=== PATIENT | male | born 1980 | race Caucasian/White ===

== ENCOUNTER → 2017-01-04 | Outpatient (CLI) | payer MEDICARE, OTHER ==
[2017-01-04 10:20] LABS: Basophils % (A) 0 %; CH 27.7; CHCM 32.4; Eosinophils # (A) 0.2 k/uL (0-0.7); Eosinophils % (A) 2 %; HCT 47.6 % (39.0-53.0); HDW 3.05; HGB 15.6 gm/dL (13.0-17.5); Luc # (Auto) 0.11; Luc % (Auto) 1; Lymphocytes # (A) 3.6 k/uL (1.0-4.8); Lymphocytes % (A) 45 %; MCH 28.1 pg (25.0-35.0); MCHC 32.8 g/dL (31.0-37.0); MCV 85.8 fL (80.0-100.0); Mean Platelet Volume 7.5; Monocytes # (A) 0.2 k/uL (0-1.0); Monocytes % (A) 3 %; Neutrophils # (A) 3.8 k/uL (1.3-7.7); Neutrophils % (A) 48 %; RBC 5.56 m/uL (4.30-5.90); RDW 13.9 % (11.5-15.5); WBC 7.9 k/uL (3.8-10.6); WBC (Perox) 7.86
== END | disposition home or self-care (01) ==
LOC: LABWHC1 08:28
PROVIDERS: ATTEND Psychiatry & Neurology Neurology
DX: G40.209 Localization-related (focal) (partial) symptomatic epilepsy and epileptic syndromes with complex partial seizures, not intractable, without status epilepticus (principal)
CPT/HCPCS: 36415; 80164; 80201; 84450; 84460; 85025

== ENCOUNTER → 2017-11-09 | Outpatient (CLI) | payer MEDICARE, OTHER ==
[2017-11-09 10:12] LABS: Basophils % (A) 0 %; Eosinophils # (A) 0.2 k/uL (0-0.7); Eosinophils % (A) 2 %; HCT 49.1 % (39.0-53.0); HGB 15.5 gm/dL (13.0-17.5); Lymphocytes # (A) 3.4 k/uL (1.0-4.8); Lymphocytes % (A) 33 %; MCH 26.7 pg (25.0-35.0); MCHC 31.7 g/dL (31.0-37.0); MCV 84.2 fL (80.0-100.0); Monocytes # (A) 0.3 k/uL (0-1.0); Monocytes % (A) 3 %; Neutrophils # (A) 6.3 k/uL (1.3-7.7); Neutrophils % (A) 61 %; Platelet Count 290 k/uL (150-450); RBC 5.83 m/uL (4.30-5.90); RDW 13.5 % (11.5-15.5); WBC 10.3 k/uL (3.8-10.6)
[2017-11-09 11:08] LABS: Valproic Acid (Depakene) 45.7 ug/mL
== END | disposition home or self-care (01) ==
LOC: LABWHC1 09:20
PROVIDERS: ATTEND Psychiatry & Neurology Neurology
DX: G40.209 Localization-related (focal) (partial) symptomatic epilepsy and epileptic syndromes with complex partial seizures, not intractable, without status epilepticus (principal)
CPT/HCPCS: 36415; 80164; 80201; 84450; 84460; 85025

== ENCOUNTER → 2018-04-21 | Outpatient (CLI) | payer MEDICARE, OTHER ==
[2018-04-21 09:57] LABS: Basophils % (A) 0 %; Eosinophils # (A) 0.3 k/uL (0-0.7); Eosinophils % (A) 4 %; HCT 46.6 % (39.0-53.0); HGB 15.1 gm/dL (13.0-17.5); Lymphocytes # (A) 3.5 k/uL (1.0-4.8); Lymphocytes % (A) 42 %; MCH 28.2 pg (25.0-35.0); MCHC 32.5 g/dL (31.0-37.0); MCV 86.8 fL (80.0-100.0); Monocytes # (A) 0.2 k/uL (0-1.0); Monocytes % (A) 3 %; Neutrophils # (A) 4.1 k/uL (1.3-7.7); Neutrophils % (A) 50 %; Platelet Count 208 k/uL (150-450); RBC 5.37 m/uL (4.30-5.90); RDW 13.6 % (11.5-15.5); WBC 8.3 k/uL (3.8-10.6)
[2018-04-21 16:11] LABS: Valproic Acid (Depakene) 51.1 ug/mL (50.0-100.0)
== END ==
LOC: LABWHC1 09:12
PROVIDERS: ATTEND Psychiatry & Neurology Neurology
DX: G40.209 Localization-related (focal) (partial) symptomatic epilepsy and epileptic syndromes with complex partial seizures, not intractable, without status epilepticus (principal)
CPT/HCPCS: 36415; 80164; 80201; 84450; 84460; 85025

== ENCOUNTER → 2019-01-24 | Outpatient (CLI) | payer MEDICARE, OTHER ==
[2019-01-24 10:15] LABS: Basophils % (A) 0 %; Eosinophils # (A) 0.2 k/uL (0-0.7); Eosinophils % (A) 3 %; HCT 49.6 % (39.0-53.0); Lymphocytes # (A) 2.5 k/uL (1.0-4.8); Lymphocytes % (A) 36 %; MCH 28.9 pg (25.0-35.0); MCHC 32.3 g/dL (31.0-37.0); MCV 89.6 fL (80.0-100.0); Mean Platelet Volume 7.7; Monocytes # (A) 0.2 k/uL (0-1.0); Monocytes % (A) 3 %; Neutrophils % (A) 56 %; Platelet Count 230 k/uL (150-450); RBC 5.54 m/uL (4.30-5.90); RDW 13.4 % (11.5-15.5); WBC 7.1 k/uL (3.8-10.6)
[2019-01-24 12:36] LABS: Erythrocyte Sedimentation Rate 2 mm/hr (0-15)
[2019-01-24 17:41] LABS: ALT 33 U/L (10-49); AST 21 U/L (14-35); Albumin/Globulin Ratio 2.24 (1.60-3.17); Alkaline Phosphatase 68 U/L (41-126); BUN/Creat Ratio 8.89 Ratio (12.00-20.00); C Reactive Protein <0.4 mg/dL (0.0-0.8); Calcium 9.9 mg/dL (8.7-10.3); Carbon Dioxide 22.9 mmol/L (21.6-31.8); Chloride 110 mmol/L (96-109); Globulin 2.1 g/dL (1.6-3.3); Glucose 171 mg/dL (70-110); Potassium 4.8 mmol/L (3.5-5.5); Sodium 139 mmol/L (135-145); Total Bilirubin 0.4 mg/dL (0.3-1.2); Total Protein 6.8 g/dL (6.2-8.2)
[2019-01-24 18:24] LABS: Gliadin AB IgA, Deaminated NEGATIVE (NEGATIVE); Gliadin AB IgA, Unit 0.3 U/mL; Gliadin AB IgG, Deaminated NEGATIVE (NEGATIVE)
== END | disposition home or self-care (01) ==
LOC: LABWHC1 09:02
PROVIDERS: ATTEND Physician Assistant
DX: G40.209 Localization-related (focal) (partial) symptomatic epilepsy and epileptic syndromes with complex partial seizures, not intractable, without status epilepticus (principal); R19.7 Diarrhea, unspecified
CPT/HCPCS: 36415; 80053; 80164; 80201; 83516; 85025; 85652; 86140

== ENCOUNTER → 2020-02-25 | Outpatient (CLI) | payer MEDICARE, OTHER ==
[2020-02-25 10:46] LABS: Basophils % (A) 0 %; Eosinophils # (A) 0.3 k/uL (0-0.7); Eosinophils % (A) 3 %; HCT 51.2 % (39.0-53.0); Lymphocytes # (A) 3.5 k/uL (1.0-4.8); Lymphocytes % (A) 35 %; MCH 29.2 pg (25.0-35.0); MCHC 33.3 g/dL (31.0-37.0); MCV 87.7 fL (80.0-100.0); Mean Platelet Volume 7.6; Monocytes # (A) 0.3 k/uL (0-1.0); Monocytes % (A) 3 %; Neutrophils # (A) 5.8 k/uL (1.3-7.7); Neutrophils % (A) 58 %; Platelet Count 258 k/uL (150-450); RBC 5.85 m/uL (4.30-5.90); RDW 12.8 % (11.5-15.5)
== END | disposition home or self-care (01) ==
LOC: LABWHC1 09:16
PROVIDERS: ATTEND Psychiatry & Neurology Neurology
DX: G40.209 Localization-related (focal) (partial) symptomatic epilepsy and epileptic syndromes with complex partial seizures, not intractable, without status epilepticus (principal)
CPT/HCPCS: 36415; 80164; 80201; 84450; 84460; 85025

== ENCOUNTER 2020-04-15 11:06 | Inpatient (IN) | payer MEDICARE, OTHER ==
[2020-04-15] MEDS ORDERED: KETOROLAC 15 MG/ML 1 ML VIAL IVP STA (11:11)
[2020-04-15] MEDS ORDERED: ONDANSETRON 4 MG/2 ML VIAL IVP STA (11:11)
[2020-04-15] MEDS ORDERED: SODIUM CHLORIDE 0.9% 2,000 ML IV STA (11:11)
--- NOTE | 2020-04-15 11:17 | ED ---
General Adult HPI - General Source: patient, EMS, RN notes reviewed Mode of arrival: EMS Limitations: no limitations <Herminio Fernandez - Last Filed: 04/15/20 12:50> <Tyshawn Saeed - Last Filed: 04/15/20 13:03> - General Stated complaint: r sided flank pain Time Seen by Provider: 04/15/20 11:10 - History of Present Illness Initial comments: This a 39-year-old male presents emergency department via EMS chief complaint of right-sided flank pain, abdominal pain, nausea vomiting. Patient's symptoms started last day or so worsen. Patient states his current pain as a 6 out of 10. Patient states that he still feels nauseated. No diarrhea no constipation no history kidney stones. Patient had a fever at home. Patient denies any pr ior abdominal surgeries. Patient denies headache sick contacts. No dysuria no hematuria no chest pain or shortness breath. (Herminio Fernandez) - Related Data Home Medications Medication Instructions Recorded Confirmed Dicyclomine [Bentyl] 10 mg PO TID 04/15/20 04/15/20 Divalproex ER [Depakote ER] 250 mg PO DAILY 04/15/20 04/15/20 Divalproex ER [Depakote ER] 500 mg PO DAILY 04/15/20 04/15/20 Doxycycline 20mg 20 mg PO BID 04/15/20 04/15/20 Dulaglutide [Trulicity] 1.5 mg SQ TH 04/15/20 04/15/20 Fluticasone Nasal [place] [Flonase 1 spr EA NOSTRIL DAILY 04/15/20 04/15/20 Nasal [place]] Loratadine 10 mg PO DAILY 04/15/20 04/15/20 Topiramate [Trokendi Xr] 50 mg PO DAILY 04/15/20 04/15/20 Topiramate [Trokendi Xr] 200 mg PO DAILY 04/15/20 04/15/20 metFORMIN HCL 1,000 mg PO BID 04/15/20 04/15/20 sitaGLIPtin [Januvia] 100 mg PO DAILY 04/15/20 04/15/20 Allergies Allergy/AdvReac Type Severity Reaction Status Date / Time No Known Allergies Allergy Verified 04/15/20 12:16 Review of Systems ROS Other: All systems not noted in ROS Statement are negative. <Herminio Fernandez - Last Filed: 04/15/20 12:50> ROS Other: All systems not noted in ROS Statement are negative. <Tyshawn Saeed - Last Filed: 04/15/20 13:03> ROS Statement: Those systems with pertinent positive or pertinent negative responses have been documented in the HPI. General Exam General appearance: alert, in no apparent distress Head exam: Present: atraumatic, normocephalic, normal inspection Eye exam: Present: normal appearance, PERRL, EOMI. Absent: scleral icterus, conjunctival injection, periorbital swelling ENT exam: Present: mucous membranes dry Neck exam: Present: normal inspection, full ROM. Absent: tenderness, meningismus, lymphadenopathy Respiratory exam: Present: normal lung sounds bilaterally. Absent: respiratory distress, wheezes, rales, rhonchi, stridor Cardiovascular Exam: Present: regular rate, normal rhythm, normal heart sounds. Absent: systolic murmur, diastolic murmur, rubs, gallop, clicks GI/Abdominal exam: Present: soft, tenderness (Mild right, right flank), normal bowel sounds. Absent: distended, guarding, rebound, rigid Back exam: Present: CVA tenderness (R). Absent: CVA tenderness (L) Neurological exam: Present: alert, oriented X3 Skin exam: Present: warm, dry, intact, normal color. Absent: rash <Herminio Fernandez - Last Filed: 04/15/20 12:50> Course <Tyshawn Saeed - Last Filed: 04/15/20 13:03> Vital Signs 04/15/20 11:06 Temperature 100.0 F H Pulse Rate 72 Respiratory 18 Rate Blood Pressure 146/99 O2 Sat by Pulse 100 Oximetry - Reevaluation(s) Reevaluation #1: 04/15/20 13:03 Case discussed with urology, Dr. Kirkland, and the admitting physician Dr. Prince. (Tyshawn Saeed) Medical Decision Making - Lab Data Result diagrams: 04/15/20 11:22 04/15/20 11:22 <Herminio Fernandez - Last Filed: 04/15/20 12:50> - Lab Data Result diagrams: 04/15/20 11:22 04/15/20 11:22 <Tyshawn Saeed - Last Filed: 04/15/20 13:03> - Medical Decision Making 31-year-old male presented to ER for flank pain. Patient's noted have 6-7 mm stone patient has noted a low-grade temp, but is ecchymosis and lactic acidosis. Case discussed with urology recommended patient be admitted for continued on IV antibiotics. Patient was started on Rocephin. (Herminio Fernandez) - Lab Data Lab Results 04/15/20 04/15/20 04/15/20 Range/Units 11:22 11:22 11:22 WBC 14.6 H (3.8-10.6) k/uL RBC 5.21 (4.30-5.90) m/uL Hgb 15.1 (13.0-17.5) gm/dL Hct 44.7 (39.0-53.0) % MCV 85.8 (80.0-100.0) fL MCH 29.0 (25.0-35.0) pg MCHC 33.8 (31.0-37.0) g/dL RDW 12.8 (11.5-15.5) % Plt Count 226 (150-450) k/uL MPV 7.8 Neutrophils % 88 % Lymphocytes % 9 % Monocytes % 3 % Eosinophils % 0 % Basophils % 0 % Neutrophils # 12.8 H (1.3-7.7) k/uL Lymphocytes # 1.3 (1.0-4.8) k/uL Monocytes # 0.4 (0-1.0) k/uL Eosinophils # 0.0 (0-0.7) k/uL Basophils # 0.0 (0-0.2) k/uL Sodium 138 (137-145) mmol/L Potassium 5.2 H (3.5-5.1) mmol/L Chloride 104 (98-107) mmol/L Carbon Dioxide 22 (22-30) mmol/L Anion Gap 12 mmol/L BUN 16 (9-20) mg/dL Creatinine 1.18 (0.66-1.25) mg/dL Est GFR (CKD-EPI)AfAm >90 (>60 ml/min/1.73 sqM) Est GFR (CKD-EPI)NonAf 78 (>60 ml/min/1.73 sqM) Glucose 297 H (74-99) mg/dL Plasma Lactic Acid Jorden (0.7-2.0) mmol/L Calcium 9.9 (8.4-10.2) mg/dL Total Bilirubin 0.6 (0.2-1.3) mg/dL AST 25 (17-59) U/L ALT 43 (4-49) U/L Alkaline Phosphatase 74 (38-126) U/L Total Protein 7.2 (6.3-8.2) g/dL Albumin 4.5 (3.5-5.0) g/dL Amylase 33 (30-110) U/L Lipase 149 (23-300) U/L Urine Color Light Yellow Urine Appearance Clear (Clear) Urine pH 6.5 (5.0-8.0) Ur Specific [place] 1.024 (1.001-1.035) Urine Protein Negative (Negative) Urine Glucose (UA) 4+ H (Negative) Urine Ketones 2+ H (Negative) Urine Blood Moderate H (Negative) Urine Nitrite Negative (Negative) Urine Bilirubin Negative (Negative) Urine Urobilinogen <2.0 (<2.0) mg/dL Ur Leukocyte Esterase Negative (Negative) Urine RBC 49 H (0-5) /hpf Urine WBC 1 (0-5) /hpf Urine Mucus Rare H (None) /hpf 04/15/20 Range/Units 11:22 WBC (3.8-10.6) k/uL RBC (4.30-5.90) m/uL Hgb (13.0-17.5) gm/dL Hct (39.0-53.0) % MCV (80.0-100.0) fL MCH (25.0-35.0) pg MCHC (31.0-37.0) g/dL RDW (11.5-15.5) % Plt Count (150-450) k/uL MPV Neutrophils % % Lymphocytes % % Monocytes % % Eosinophils % % Basophils % % Neutrophils # (1.3-7.7) k/uL Lymphocytes # (1.0-4.8) k/uL Monocytes # (0-1.0) k/uL Eosinophils # (0-0.7) k/uL Basophils # (0-0.2) k/uL Sodium (137-145) mmol/L Potassium (3.5-5.1) mmol/L Chloride (98-107) mmol/L Carbon Dioxide (22-30) mmol/L Anion Gap mmol/L BUN (9-20) mg/dL Creatinine (0.66-1.25) mg/dL Est GFR (CKD-EPI)AfAm (>60 ml/min/1.73 sqM) Est GFR (CKD-EPI)NonAf (>60 ml/min/1.73 sqM) Glucose (74-99) mg/dL Plasma Lactic Acid Jorden 3.6 H* (0.7-2.0) mmol/L Calcium (8.4-10.2) mg/dL Total Bilirubin (0.2-1.3) mg/dL AST (17-59) U/L ALT (4-49) U/L Alkaline Phosphatase (38-126) U/L Total Protein (6.3-8.2) g/dL Albumin (3.5-5.0) g/dL Amylase (30-110) U/L Lipase (23-300) U/L Urine Color Urine Appearance (Clear) Urine pH (5.0-8.0) Ur Specific [place] (1.001-1.035) Urine Protein (Negative) Urine Glucose (UA) (Negative) Urine Ketones (Negative) Urine Blood (Negative) Urine Nitrite (Negative) Urine Bilirubin (Negative) Urine Urobilinogen (<2.0) mg/dL Ur Leukocyte Esterase (Negative) Urine RBC (0-5) /hpf Urine WBC (0-5) /hpf Urine Mucus (None) /hpf Disposition <Herminio Fernandez M - Last Filed: 04/15/20 12:50> <Tyshawn Saeed - Last Filed: 04/15/20 13:03> Clinical Impression: Ureteral calculus, Febrile, Lactic acidosis Disposition: ADMITTED IP TO THIS HOSP Referrals: Min Rojas MD [Primary Care Provider] - 1-2 days
[2020-04-15 11:42] LABS: Basophils % (A) 0 %; Eosinophils % (A) 0 %; HCT 44.7 % (39.0-53.0); HGB 15.1 gm/dL (13.0-17.5); Lymphocytes # (A) 1.3 k/uL (1.0-4.8); Lymphocytes % (A) 9 %; MCHC 33.8 g/dL (31.0-37.0); MCV 85.8 fL (80.0-100.0); Mean Platelet Volume 7.8; Monocytes # (A) 0.4 k/uL (0-1.0); Monocytes % (A) 3 %; Neutrophils # (A) 12.8 k/uL (1.3-7.7); Neutrophils % (A) 88 %; Platelet Count 226 k/uL (150-450); RBC 5.21 m/uL (4.30-5.90); RDW 12.8 % (11.5-15.5); WBC 14.6 k/uL (3.8-10.6)
[2020-04-15 11:53] LABS: ALT 43 U/L (4-49); AST 25 U/L (17-59); African American GFR (CKD) >90 (>60 ml/min/1.73 sqM); Albumin 4.5 g/dL (3.5-5.0); Alkaline Phosphatase 74 U/L (38-126); Amylase 33 U/L (30-110); Anion Gap 12 mmol/L; Blood Urea Nitrogen 16 mg/dL (9-20); Calcium 9.9 mg/dL (8.4-10.2); Carbon Dioxide 22 mmol/L (22-30); Chloride 104 mmol/L (98-107); Glucose 297 mg/dL (74-99); Lipase 149 U/L (23-300); Non-African American GFR(CKD) 78 (>60 ml/min/1.73 sqM); Potassium 5.2 mmol/L (3.5-5.1); Sodium 138 mmol/L (137-145); Total Bilirubin 0.6 mg/dL (0.2-1.3); Total Protein 7.2 g/dL (6.3-8.2)
[2020-04-15 11:58] LABS: Appearance,Urine Clear (Clear); Bilirubin,Urine Negative (Negative); Blood,Urine Moderate (Negative); Color,Urine Light Yellow; Glucose,Urine (UA) 4+ (Negative); Leukocyte Esterase,Urine Negative (Negative); Mucus,Urine Rare /hpf; Nitrite,Urine Negative (Negative); PH, Urine 6.5 (5.0-8.0); Protein,Urine Negative (Negative); RBC,Urine 49 /hpf (0-5); Specific Gravity,Urine 1.024 (1.001-1.035); Urobilinogen,Urine <2.0 mg/dL (<2.0); WBC,Urine 1 /hpf (0-5)
[2020-04-15 12:14] LABS: Ketones,Urine 2+ (Negative)
--- NOTE | 2020-04-15 12:30 | CT ---
EXAMINATION TYPE: CT abdomen pelvis w con DATE OF EXAM: 04/15/2020 COMPARISON: None. HISTORY: Right sided flank pain and fever. CT DLP: 1598.6 mGycm, Automated Exposure Control for Dose Reduction was Utilized. CONTRAST: CT scan of the abdomen and pelvis is performed without oral but with IV Contrast, patient injected wi th 10 mL of Isovue 300. FINDINGS: LUNG BASES: No significant abnormality is appreciated. LIVER/GB: Visualized liver is heterogeneously hypodense consistent with diffuse fatty infiltration. PANCREAS: No significant abnormality is seen. SPLEEN: No significant abnormality is seen. ADRENALS: No significant abnormality is seen. KIDNEYS: There is 6 mm calculus in the right kidney midpole level coronal image 66. There is symmetri c cortical medullary uptake but delayed or absent excretion from the right kidney. No left-sided pina l calculus or hydronephrosis. There is obstructing calculus or 2 adjacent calculi measuring 6 to 7 mm in the proximal right ureter coronal image 57 causing mild right-sided hydronephrosis. BOWEL: Low-lying cecum into the right pelvis. Normal-appearing appendix. PROSTATE/SEMINAL VESICLES: No gross abnormality seen. LYMPH NODES: No greater than 1cm abdominal or pelvic lymph nodes are appreciated. OSSEOUS STRUCTURES: Slight scoliotic curvature or positioning. OTHER: No significant additional abnormality is seen. IMPRESSION: There is obstructing 6 to 7 mm calculus in proximal right ureter causing mild right-sided hydronephrosis and at least delayed excretion
[2020-04-15] MEDS ORDERED: NALOXONE 0.4 MG/ML 1 ML VIAL IV PRN (12:54)
[2020-04-15] MEDS ORDERED: ONDANSETRON 4 MG/2 ML VIAL IVP PRN (12:54)
[2020-04-15] MEDS: SODIUM CHLORIDE 0.9% 1,000 ML IV SCH (13:17)
--- NOTE | 2020-04-15 15:27 | P.GSCN ---
History of Present Illness Consult date: 04/15/20 Reason for Consult: Right ureteral calculus Requesting physician: Josue Prince History of present illness: The patient is a 39-year-old white male with no prior history of urolithiasis. He has experienced vague right flank discomfort for several weeks. The past 24 hours, the pain has intensified and he has experienced associated nausea and vomiting. He presented to the emergency room. A computed tomography scan lilian wed evidence of kidney stones, and he was subsequently admitted. Review of Systems - Constitutional Denies chills, Denies fever - Cardiovascular Denies chest pain - Respiratory Denies dyspnea - Gastrointestinal Reports abdominal pain, Reports nausea, Reports vomiting, Denies constipation, Denies diarrhea - Genitourinary Reports flank pain, Denies dysuria, Denies hematuria Past Medical History Past Medical History: Diabetes Mellitus, Seizure Disorder History of Any Multi-Drug Resistant Organisms: None Reported Past Surgical History: No Surgical Hx Reported Past Psychological History: No Psychological Hx Reported Smoking Status: Never smoker Past Alcohol Use History: None Reported Past Drug Use History: None Reported Medications and Allergies Home Medications Medication Instructions Recorded Confirmed Type Dicyclomine [Bentyl] 10 mg PO TID 04/15/20 04/15/20 History Divalproex ER [Depakote ER] 250 mg PO DAILY 04/15/20 04/15/20 History Divalproex ER [Depakote ER] 500 mg PO DAILY 04/15/20 04/15/20 History Doxycycline 20mg 20 mg PO BID 04/15/20 04/15/20 History Dulaglutide [Trulicity] 1.5 mg SQ TH 04/15/20 04/15/20 History Fluticasone Nasal [place] [Flonase 1 spr EA NOSTRIL DAILY 04/15/20 04/15/20 History Nasal [place]] Loratadine 10 mg PO DAILY 04/15/20 04/15/20 History Topiramate [Trokendi Xr] 50 mg PO HS 04/15/20 04/15/20 History Topiramate [Trokendi Xr] 200 mg PO HS 04/15/20 04/15/20 History metFORMIN HCL 1,000 mg PO BID 04/15/20 04/15/20 History sitaGLIPtin [Januvia] 100 mg PO DAILY 04/15/20 04/15/20 History Allergies Allergy/AdvReac Type Severity Reaction Status Date / Time No Known Allergies Allergy Verified 04/15/20 12:16 Surgical - Exam Vital Signs Temp Pulse Resp BP Pulse Ox 100.0 F H 72 18 146/99 100 04/15/20 11:06 04/15/20 11:06 04/15/20 11:06 04/15/20 11:06 04/15/20 11:06 - General well developed, well nourished, no distress - Neck no masses, trachea midline - Respiratory normal respiratory effort - Abdomen Abdomen: soft, tender (right CVA tenderness), no guarding, no rigid, no rebound - Psychiatric oriented to time, oriented to person, oriented to place, speech is normal, memory intact Results - Labs 04/15/20 11:22 04/15/20 11:22 Abnormal Lab Results - Last 24 Hours (Table) 04/15/20 04/15/20 04/15/20 Range/Units 11:22 11:22 11:22 WBC 14.6 H (3.8-10.6) k/uL Neutrophils # 12.8 H (1.3-7.7) k/uL Potassium 5.2 H (3.5-5.1) mmol/L Glucose 297 H (74-99) mg/dL Plasma Lactic Acid Jorden (0.7-2.0) mmol/L Urine Glucose (UA) 4+ H (Negative) Urine Ketones 2+ H (Negative) Urine Blood Moderate H (Negative) Urine RBC 49 H (0-5) /hpf Urine Mucus Rare H (None) /hpf 04/15/20 Range/Units 11:22 WBC (3.8-10.6) k/uL Neutrophils # (1.3-7.7) k/uL Potassium (3.5-5.1) mmol/L Glucose (74-99) mg/dL Plasma Lactic Acid Jorden 3.6 H* (0.7-2.0) mmol/L Urine Glucose (UA) (Negative) Urine Ketones (Negative) Urine Blood (Negative) Urine RBC (0-5) /hpf Urine Mucus (None) /hpf Diabetes panel 04/15/20 Range/Units 11:22 Sodium 138 (137-145) mmol/L Potassium 5.2 H (3.5-5.1) mmol/L Chloride 104 (98-107) mmol/L Carbon Dioxide 22 (22-30) mmol/L BUN 16 (9-20) mg/dL Creatinine 1.18 (0.66-1.25) mg/dL Glucose 297 H (74-99) mg/dL Calcium 9.9 (8.4-10.2) mg/dL AST 25 (17-59) U/L ALT 43 (4-49) U/L Alkaline Phosphatase 74 (38-126) U/L Total Protein 7.2 (6.3-8.2) g/dL Albumin 4.5 (3.5-5.0) g/dL Calcium panel 04/15/20 Range/Units 11:22 Calcium 9.9 (8.4-10.2) mg/dL Albumin 4.5 (3.5-5.0) g/dL Pituitary panel 04/15/20 Range/Units 11:22 Sodium 138 (137-145) mmol/L Potassium 5.2 H (3.5-5.1) mmol/L Chloride 104 (98-107) mmol/L Carbon Dioxide 22 (22-30) mmol/L BUN 16 (9-20) mg/dL Creatinine 1.18 (0.66-1.25) mg/dL Glucose 297 H (74-99) mg/dL Calcium 9.9 (8.4-10.2) mg/dL Adrenal panel 04/15/20 Range/Units 11:22 Sodium 138 (137-145) mmol/L Potassium 5.2 H (3.5-5.1) mmol/L Chloride 104 (98-107) mmol/L Carbon Dioxide 22 (22-30) mmol/L BUN 16 (9-20) mg/dL Creatinine 1.18 (0.66-1.25) mg/dL Glucose 297 H (74-99) mg/dL Calcium 9.9 (8.4-10.2) mg/dL Total Bilirubin 0.6 (0.2-1.3) mg/dL AST 25 (17-59) U/L ALT 43 (4-49) U/L Alkaline Phosphatase 74 (38-126) U/L Total Protein 7.2 (6.3-8.2) g/dL Albumin 4.5 (3.5-5.0) g/dL - Imaging CT scan - abdomen: report reviewed, image reviewed Assessment and Plan (1) Calculus of kidney Current Visit: Yes Status: Acute Code(s): N20.0 - CALCULUS OF KIDNEY SNOMED Code(s): 92529204 (2) Ureteral calculus Current Visit: Yes Status: Acute Code(s): N20.1 - CALCULUS OF URETER SNOMED Code(s): 15484032 (3) Hydronephrosis with renal and ureteral calculous obstruction Current Visit: Yes Status: Acute Code(s): N13.2 - HYDRONEPHROSIS WITH RENAL AND URETERAL CALCULOUS OBSTRUCTION SNOMED Code(s): 836617847 Plan: I reviewed the CT scan findings with the patient in detail. He has moderate right hydronephrosis due to a 6-7 mm right proximal ureteral calculus. Additionally, 2 right renal calculi are seen, each measuring 4-5 mm in diameter. I discussed alternative treatment options with the patient, namely medical expulsion therapy, extracorporal shockwave lithotripsy (ESWL), and ureteroscopy with laser lithotripsy. The pros, cons, and risks of each were reviewed. He has elected to undergo cystoscopy, right retrograde pyelogram, right ureteroscopy with holmium laser lithotripsy and possible stone basketing, right ureteral stent insertion tomorrow. He is aware of potential risks, which include anesthesia, bleeding, infection, and ureteral injury. Although the patient has a low-grade fever and an elevated lactic acid level, his urinalysis was negative and I do not suspect an underlying UTI. He received Rocephin in the emergency room, and he will be watched closely for signs of sepsis. Time with Patient: Greater than 30
[2020-04-15 15:47] LABS: Glucose,Whole Blood 182 mg/dL (75-99)
[2020-04-15] MEDS: DICYCLOMINE 10 MG CAP PO SCH ×2 (15:47→20:33)
[2020-04-15] MEDS: DIVALPROEX ER 500 MG TAB.ER.24H PO SCH (15:47)
[2020-04-15] MEDS: metFORMIN 500 MG TAB PO SCH (15:47)
[2020-04-15] MEDS: DIVALPROEX ER 250 MG TAB.ER.24H PO SCH (15:47)
[2020-04-15] MEDS: HYDROmorphone 0.5 MG/0.5 ML SYRINGE IVP PRN (20:03)
[2020-04-15 20:23] LABS: Glucose,Whole Blood 182 mg/dL (75-99)
[2020-04-15] MEDS: TOPIRAMATE 100 MG TAB PO SCH (20:33)
[2020-04-15] MEDS: TOPIRAMATE 25 MG TAB PO SCH (20:33)
[2020-04-16] MEDS: KETOROLAC 15 MG/ML 1 ML VIAL IVP PRN ×2 (05:22→23:02)
[2020-04-16] MEDS: SODIUM CHLORIDE 0.9% 1,000 ML IV SCH ×3 (05:24→20:56)
[2020-04-16 07:25] LABS: Glucose,Whole Blood 162 mg/dL (75-99)
--- NOTE | 2020-04-16 07:43 | XR ---
KUB HISTORY: Right ureteral calculus Frontal KUB submitted on [address] scan 04/15/2020 There is retained contrast material within hydronephrotic right kidney. There is columning of the con trast to the level of the ureteral calculus at approximately the L3-4 disc space level on the right. Patient's renal calculi on the right are not seen, obscured by contrast. There is distention of the u rinary bladder, retained contrast material. Phlebolith is present in the left hemipelvis. No evident bowel obstruction. IMPRESSION: Obstructive right ureteral calculus. Additional findings above.
[2020-04-16] MEDS: TAMSULOSIN 0.4 MG CAP.ER.24H PO SCH (07:44)
[2020-04-16] MEDS: DIVALPROEX ER 500 MG TAB.ER.24H PO SCH (07:44)
[2020-04-16] MEDS: LINAGLIPTIN 5 MG TABLET PO SCH (07:44)
[2020-04-16] MEDS: DICYCLOMINE 10 MG CAP PO SCH ×3 (07:44→23:20)
[2020-04-16] MEDS: FLUTICASONE 50MCG/SPRAY NASAL 16GM EA NOSTRIL SCH (07:44)
[2020-04-16] MEDS: LORATADINE 10 MG TAB PO SCH (07:44)
[2020-04-16] MEDS: DIVALPROEX ER 250 MG TAB.ER.24H PO SCH (07:44)
[2020-04-16] MEDS: metFORMIN 500 MG TAB PO SCH ×2 (07:45→21:43)
[2020-04-16] MEDS: TOPIRAMATE 100 MG TAB PO SCH ×2 (07:45→21:45)
[2020-04-16] MEDS: TOPIRAMATE 25 MG TAB PO SCH ×2 (07:45→21:44)
--- NOTE | 2020-04-16 08:00 | P.HPIM ---
History of Present Illness H&P Date: 04/15/20 Chief Complaint: Severe abdominal pain, large kidney stone, hydronephrosis, UTI 39-year-old male one of Dr. Franklin patient with past medical history of type 2 diabetes, neuropathy, seizure, IBS who has not been feeling well for the last few days last 48 hours developed to have significant right-sided flank pain on and off associated with nausea without vomiting his pain become impenetrable 04/15/2020 patient ended up coming to the emergency department at [facility] where was seen and evaluated, CT of the abdomen showed an obstructing 6-7 mm calculus in the proximal right ureter causing mild right-sided hydronephrosis his UA was positive patient blood sugar was quite bed elevated he has an elevated white blood cell at 14.6. Patient was diagnosed with UTI, right-sided obstructive uropathy, large kidney stone and intractable nausea was started on hydration antiemesis medication started on antibiotics along with Flomax will be seen urology and possible need for intervention. Review of Systems CONSTITUTIONAL: Well-developed no acute respiratory distress. EYES: No icterus sclerae, no conjunctivitis. EARS, NOSE, MOUTH, THROAT, and FACE: No sore throat, lymphadenopathy, carotid bruits or deformity. RESPIRATORY: No SOB cough or wheezes. CARDIOVASCULAR: No CP, Palpitation, PND, Orthopnea, or angina. GASTROINTESTINAL: Positive abdominal pain with nausea no vomiting, diarrhea the GI bleed. GENITOURINARY: Large right-sided kidney stone with infection. INTEGUMENT/BREAST: Negative for any muscular injury with mild osteoarthritis.. HEMATOLOGIC/LYMPHATIC: Negative for bleed or purpura. MUSCULOSKELTAL: Negative for Myalgia or arthralgia. NEURLOGICAL: No LOC, Sz or syncope, blurred vision dizziness or abnormality. History of seizure. BEHAVIORAL/PSYCH: Negative. ENDOCRINE: Negative. Social history: Patient does not smoke, no alcohol abuse, he is on disability single does not have any children. Ex Family history: His father age 30 from [place], mother 53 from [place] and [place], patient was only child. Parents his single does not have any children. Past Medical History Past Medical History: Diabetes Mellitus, Seizure Disorder Additional Past Medical History / Comment(s): IBS - no dairy History of Any Multi-Drug Resistant Organisms: None Reported Past Surgical History: No Surgical Hx Reported Past Psychological History: No Psychological Hx Reported Smoking Status: Never smoker Past Alcohol Use History: None Reported Past Drug Use History: None Reported Medications and Allergies Home Medications Medication Instructions Recorded Confirmed Type Dicyclomine [Bentyl] 10 mg PO TID 04/15/20 04/15/20 History Divalproex ER [Depakote ER] 250 mg PO DAILY 04/15/20 04/15/20 History Divalproex ER [Depakote ER] 500 mg PO DAILY 04/15/20 04/15/20 History Doxycycline 20mg 20 mg PO BID 04/15/20 04/15/20 History Dulaglutide [Trulicity] 1.5 mg SQ TH 04/15/20 04/15/20 History Fluticasone Nasal [place] [Flonase 1 spr EA NOSTRIL DAILY 04/15/20 04/15/20 H istory Nasal [place]] Loratadine 10 mg PO DAILY 04/15/20 04/15/20 History Topiramate [Trokendi Xr] 50 mg PO HS 04/15/20 04/15/20 History Topiramate [Trokendi Xr] 200 mg PO HS 04/15/20 04/15/20 History metFORMIN HCL 1,000 mg PO BID 04/15/20 04/15/20 History sitaGLIPtin [Januvia] 100 mg PO DAILY 04/15/20 04/15/20 History Allergies Allergy/AdvReac Type Severity Reaction Status Date / Time No Known Allergies Allergy Verified 04/15/20 12:16 Physical Exam Vitals: Vital Signs Temp Pulse Pulse Resp BP BP Pulse Ox 04/15/20 13:30 98.7 F 84 16 128/80 99 04/15/20 13:25 99.8 F H 102 H 18 128/87 97 04/15/20 11:06 100.0 F H 72 18 146/99 100 Intake and Output 04/15/20 04/15/20 04/15/20 06:59 14:59 22:59 Intake Total 236 Balance 236 Intake: Oral 236 Other: # Voids 1 Weight 98.883 kg General Appearance: Alert, cooperative, no distress, appears stated age. Neck HEENT: Supple, no lymphadenopathy, no thyroid enlargement, no carotid bruits. Lungs: Clear to auscultation without crackles or wheezes no rhonchi, no deformity. Chest Wall: Chest wall normal expansion with deep inspiration no tenderness and no deformity was found on exam, no costochondral pain or discomfort. Heart: Regular rate and rhythm, S1, S2 normal, no murmur, rub or gallop. Back: Symmetric, no curvature, ROM normal, no CVA tenderness. Significant right-sided flank pain Abdomen: Soft, non-tender, bowel sounds active all four quadrants, no masses, no organomegaly. Significant pain and discomfort in the right upper quadrant and right sided of the lower abdominal region area. Extremities: Extremities normal, atraumatic, no cyanosis or edema. Pulses: 2+ and symmetric. Skin: Skin color, texture, tugor normal, no rashes or lesions. Neurologic: Alert oriented x3 cranial nerves II through XII intact, no motor def icit, no abnormal balance or gait. Results CBC & Chem 7: 04/15/20 11:22 04/15/20 11:22 Labs: Abnormal Lab Results - Last 24 Hours (Table) 04/15/20 04/15/20 04/15/20 Range/Units 11:22 11:22 11:22 WBC 14.6 H (3.8-10.6) k/uL Neutrophils # 12.8 H (1.3-7.7) k/uL Potassium 5.2 H (3.5-5.1) mmol/L Glucose 297 H (74-99) mg/dL POC Glucose (mg/dL) (75-99) mg/dL Plasma Lactic Acid Jorden (0.7-2.0) mmol/L Urine Glucose (UA) 4+ H (Negative) Urine Ketones 2+ H (Negative) Urine Blood Moderate H (Negative) Urine RBC 49 H (0-5) /hpf Urine Mucus Rare H (None) /hpf 04/15/20 04/15/20 Range/Units 11:22 15:46 WBC (3.8-10.6) k/uL Neutrophils # (1.3-7.7) k/uL Potassium (3.5-5.1) mmol/L Glucose (74-99) mg/dL POC Glucose (mg/dL) 182 H (75-99) mg/dL Plasma Lactic Acid Jorden 3.6 H* (0.7-2.0) mmol/L Urine Glucose (UA) (Negative) Urine Ketones (Negative) Urine Blood (Negative) Urine RBC (0-5) /hpf Urine Mucus (None) /hpf Thrombosis Risk Factor Assmnt - DVT/VTE Prophylaxis DVT/VTE Prophylaxis: Mechanical Prophylaxis ordered - Choose All That Apply Any of the Below Risk Factors Present?: No Other Risk Factors: No Other congenital or acquired thrombophilia - If yes, enter type in comment: No Thrombosis Risk Factor Assessment Level: Very Low Risk Assessment and Plan Assessment: 1 severe abdominal pain: Secondary to obstructive uropathy large kidney stone continue current management. 2 severe obstructive uropathy of the right side from large kidney stone patient will be seen urology will be going for intervention possibly to remove the stone continue pain management hydration and continue to watch kidney function. 3 UTI with possible pyelonephritis: Specially with obstructive uropathy and a large kidney stone white blood cell was elevated patient has significantly abnormal urine was started on Rocephin will continue current medication until final cultures completed. 4 large kidney stone: Continue Flomax will be going for intervention. 5 type 2 diabetes: We'll continue patient on Januvia along with to elicit KAM and metformin Accu-Chek with sliding scales coverage will be done. 6 seizure: Continue patient on Depakote at and Trokendi. 7 GI prophylaxis: Patient will be on Pepcid. 8 DVT prophylaxis continue Venodyne boots and knee-high JUSTIN hose along with subcu heparin. CODE STATUS: Full code. Admit patient to the inpatient service for more than 2 night stay.
[2020-04-16] MEDS ORDERED: IV FLUID CONTINUATION 950 ML IV ONE (11:23)
[2020-04-16 11:33] LABS: Glucose,Whole Blood 164 mg/dL (75-99)
[2020-04-16] MEDS ORDERED: LIDOCAINE 1% (10MG/ML) FOR IV START INTRADERMA ONE (11:55)
--- NOTE | 2020-04-16 12:01 | P.PN ---
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 with past medical history of type 2 diabetes, neuropathy, seizure, IBS who has not been feeling well for the last few days last 48 hours developed to have significant right-sided flank pain on and off associated with nausea without vomiting his pain become impenetrable 04/15/2020 patient ended up coming to the emergency department at [facility] where was seen and evaluated, CT of the abdomen showed an obstructing 6-7 mm calculus in the proximal right ureter causing mild right-sided hydronephrosis his UA was positive patient blood sugar was quite bed elevated he has an elevated white blood cell at 14.6. Patient was diagnosed with UTI, right-sided obstructive uropathy, large kidney stone and intractable nausea was started on hydration antiemesis medication started on antibiotics along with Flomax will be seen urology and possible need for intervention. 04/16: Patient evaluated and noted to be sitting up in bed, resting comfortably in no acute distress. Patient reports pain is much better today and well controlled with current medications. Urology plans on cystoscopy, right retrog rade pyelogram, right ureteroscope with laser lithotripsy and possible stone basketing, and right urethral stent placement later on today. Patient remains afebrile temp is 98.3, blood pressure 133/74, with a heart rate of 74. Objective - Vital Signs Vital signs: Vital Signs Temp 98.3 F 04/16/20 11:32 Pulse 74 04/16/20 11:32 Resp 16 04/16/20 11:32 BP 133/74 04/16/20 11:32 Pulse Ox 98 04/16/20 11:32 Intake & Output 04/15/20 04/16/20 04/16/20 18:59 06:59 18:59 Intake Total 236 800 Balance 236 800 Weight 98.883 kg Intake: Intake, IV Titration 800 Amount Sodium Chloride 0.9% 1, 800 000 ml @ 100 mls/hr IV . Q[facility]H [facility] Rx#:[id number] Oral 236 Other: Voiding Method Toilet # Voids 1 1 - Constitutional General appearance: Present: cooperative, no acute distress - EENT Eyes: Present: EOMI, PERRLA, normal appearance ENT: Present: hearing grossly normal, normal oropharynx. Absent: pharyngeal erythema, thrush - Respiratory Respiratory: bilateral: CTA, negative: diminished, dullness, rales, rhonchi, wheezing - Cardiovascular Rhythm: regular Heart sounds: normal: S1, S2 - Gastrointestinal General gastrointestinal: Present: normal bowel sounds, soft. Absent: distended, hepatomegaly, organomegaly, tenderness - Neurologic Neurologic: Present: CNII-XII intact. Absent: focal deficits - Musculoskeletal Musculoskeletal: Present: strength equal bilaterally. Absent: right sided weakness, left sided weakness - Psychiatric Psychiatric: Present: A&O x's 3, appropriate affect, intact judgment & insight - Labs CBC & Chem 7: 04/15/20 11:22 04/15/20 11:22 Labs: Abnormal Lab Results - Last 24 Hours (Table) 04/15/20 04/15/20 04/15/20 Range/Units 11:22 11:22 11:22 Potassium 5.2 H (3.5-5.1) mmol/L Glucose 297 H (74-99) mg/dL POC Glucose (mg/dL) (75-99) mg/dL Plasma Lactic Acid Jorden 3.6 H* (0.7-2.0) mmol/L Urine Glucose (UA) 4+ H (Negative) Urine Ketones 2+ H (Negative) Urine Blood Moderate H (Negative) Urine RBC 49 H (0-5) /hpf Urine Mucus Rare H (None) /hpf 04/15/20 04/15/20 04/16/20 Range/Units 15:46 20:20 07:24 Potassium (3.5-5.1) mmol/L Glucose (74-99) mg/dL POC Glucose (mg/dL) 182 H 182 H 162 H (75-99) mg/dL Plasma Lactic Acid Jorden (0.7-2.0) mmol/L Urine Glucose (UA) (Negative) Urine Ketones (Negative) Urine Blood (Negative) Urine RBC (0-5) /hpf Urine Mucus (None) /hpf 04/16/20 Range/Units 11:31 Potassium (3.5-5.1) mmol/L Glucose (74-99) mg/dL POC Glucose (mg/dL) 164 H (75-99) mg/dL Plasma Lactic Acid Jorden (0.7-2.0) mmol/L Urine Glucose (UA) (Negative) Urine Ketones (Negative) Urine Blood (Negative) Urine RBC (0-5) /hpf Urine Mucus (None) /hpf Assessment and Plan Plan: 1 severe abdominal pain: Secondary to obstructive uropathy large kidney stone, undergoing cystoscopy, right pyelogram, lithotripsy and stent later on today 2 severe obstructive uropathy of the right side from large kidney stone patient will be seen urology will be going for intervention possibly to remove the stone continue pain management hydration and continue to watch kidney function. 3 UTI with possible pyelonephritis: Specially with obstructive uropathy and a large kidney stone white blood cell was elevated patient has significantly abnor mal urine was started on Rocephin will continue current medication until final cultures completed. 4 large kidney stone: Continue Flomax will be going for intervention. 5 type 2 diabetes: We'll continue patient on Januvia along with to elicit KAM and metformin Accu-Chek with sliding scales coverage will be done. 6 seizure: Continue patient on Depakote at and Trokendi. 7 GI prophylaxis: Patient will be on Pepcid. 8 DVT prophylaxis continue Venodyne boots and knee-high JUSTIN hose along with sub cu heparin. CODE STATUS: Full code. Admit patient to the inpatient service for more than 2 night stay. The above impression and plan of care have been discussed and directed by signing physician. Shanna Alcantar nurse practitioner acting as scribe for signing physician.
[2020-04-16] MEDS ORDERED: HYDROmorphone (PF) 1 MG/ML ONE (12:12)
[2020-04-16] MEDS ORDERED: PROPOFOL 10 MG/ML 20 ML VIAL IV ONE (12:12)
[2020-04-16] MEDS ORDERED: LIDOCAINE 1% INJ 10MG/ML (20 ML MDV) ONE (12:12)
[2020-04-16] MEDS ORDERED: fentaNYL (PF) 50 MCG/ML 2 ML AMP ONE (12:12)
[2020-04-16] MEDS ORDERED: MIDAZOLAM 2 MG/2 ML VIAL ONE (12:12)
[2020-04-16] MEDS ORDERED: SUCCINYLCHOLINE CHLORIDE 100 MG/5 ML SYR IV ONE (12:12)
[2020-04-16] MEDS ORDERED: ROCURONIUM 10 MG/ML (10 ML VIAL) IV ONE (12:12)
[2020-04-16] MEDS ORDERED: IOPAMIDOL-370 50ML BTL MISCELLANE ONE ×2 (12:43)
[2020-04-16] MEDS ORDERED: LACTATED RINGERS 1,000 ML IV ONE (13:50)
--- NOTE | 2020-04-16 13:58 | P.OP ---
Date of Procedure: 04/16/20 Preoperative Diagnosis: Right ureteral calculus, right renal calculi Postoperative Diagnosis: Same Procedure(s) Performed: Cystoscopy, urethral dilation, right ureteroscopy with Holmium laser lithotripsy and stone basketing, right ureteral stent insertion Anesthesia: MATHIEU Surgeon: Maged Kirkland Estimated Blood Loss (ml): 10 IV fluids (ml): 1,000 Pathology: none sent Condition: stable Disposition: PACU Indications for Procedure: The patient is a 39-year-old white male admitted with right renal colic due to a 6-7 mm right proximal ureteral calculus. 2 small right renal calculi were also seen. He has elected to undergo ureteroscopic removal of the calculi. Operative Findings: Impacted right proximal ureteral calculus, right mid pole calculus, right lower pole calculus. All fragmented. Description of Procedure: The patient was taken to the operating room and placed in the dorsolithotomy position, with legs supported in Eliud stirrups. The external genitalia was prepped and draped sterilely. The 30 lens was used to introduce the 21-Palestinian Mccarthy cystoscopic sheath through the urethra and into the bladder under direct vision. It was necessary to dilate the urethral meatus with Runnels sounds in order to pass the cystoscope through the urethral meatus. The prostatic urethra showed evidence of mild lateral lobe enlargement. The bladder was examined in its entirety. Both ureteral orifices were normal anatomic location and configuration. No tumors or foreign bodies were seen. A 0.038 inch Glidewire was passed through the cystoscope. The right ureteral orifice was cannulated, and the Glidewire was advanced up to the renal pelvis. The cystoscope was removed, and an 11/13-Palestinian ureteral access catheter was passed over the wire, up to the mid ureter. The Mccarthy Hiperosra flexible ureteroscope was then passed through the ureteral access catheter sheath and advanced under direct vision. However, an area of ureteral narrowing was encountered, through which the cystoscope could not be advanced. Therefore, the ureteral access catheter was removed and a 15-Palestinian balloon dilating catheter was passed over the wire. After dilating the segment, the ureteral access catheter was replaced over the wire, and ureteroscopy was repeated. It was then possible to pass the ureteroscope up to the calculus. The 200 micron Holmium laser probe was passed through the ureteroscope, and lithotripsy was performed. After fragmenting the ureteral calculus completely, the ureteroscope was advanced up to the right renal pelvis. Visualization was poor. The lower pole calculus was identified, but due to angulation laser lithotripsy could not be performed. Therefore, a 1.9-Palestinian nitinol basket was passed through the ureteroscope. The calculus was grasped and replaced into a midpole calyx. This left the calculus immediately adjacent to the other renal calculus, and both were fragmented completely. The Glidewire was then passed through the ureteroscope, which was withdrawn under direct vision along with the ureteral access catheter sheath. There was no evidence of ureteral perforation. There were no residual calculus fragments within the ureter. The Glidewire was backloaded into the cystoscope, which was passed into the bladder. A 24 cm, 6-Palestinian double-J ureteral stent was placed over the wire. Proper stent positioning was verified fluoroscopically and en doscopically. The bladder was emptied and the cystoscope removed. The patient tolerated the procedure well and was taken to the recovery room in stable condition. [facility] Report: Procedure Acuity: Urgent Stone Size and Location: Right proximal ureter, 6-7 mm Ureteral Dilation: Balloon Dilation Ureteral Access Sheath Used: Yes Stone Sent for Analysis: No All Stones/Fragments Were Removed with a Basket: No Complications: No Preoperative Antibiotics Given: Yes Stent Placed: Yes If Stent Placed, Was String Left Attached: No If Stent Placed, When is it to be Removed: 2 weeks
--- NOTE | 2020-04-16 14:29 | FL ---
Fluoroscopy HISTORY: Nephrolithiasis, ureterolithiasis on the right 115 seconds fluoroscopy time supplied to the referring clinician. 6 intraoperative C-arm images docu ment the procedure. See dictated report from urology.
[2020-04-16 17:00] LABS: Glucose,Whole Blood 190 mg/dL (75-99)
[2020-04-16 19:33] VITALS: RESP 16
[2020-04-16 20:04] LABS: Glucose,Whole Blood 231 mg/dL (75-99)
[2020-04-16] MEDS: HYDROmorphone 0.5 MG/0.5 ML SYRINGE IVP PRN (23:01)
[2020-04-17] MEDS: SODIUM CHLORIDE 0.9% 1,000 ML IV SCH (04:04)
[2020-04-17 06:25] LABS: HCT 40.3 % (39.0-53.0); HGB 13.4 gm/dL (13.0-17.5); MCH 29.2 pg (25.0-35.0); MCHC 33.4 g/dL (31.0-37.0); MCV 87.4 fL (80.0-100.0); Mean Platelet Volume 7.6; Platelet Count 159 k/uL (150-450); RBC 4.61 m/uL (4.30-5.90); RDW 12.9 % (11.5-15.5); WBC 8.5 k/uL (3.8-10.6)
[2020-04-17 07:00] LABS: Glucose,Whole Blood 188 mg/dL (75-99)
[2020-04-17] MEDS: metFORMIN 500 MG TAB PO SCH (08:03)
[2020-04-17] MEDS: DICYCLOMINE 10 MG CAP PO SCH (08:04)
[2020-04-17] MEDS: TAMSULOSIN 0.4 MG CAP.ER.24H PO SCH (08:04)
[2020-04-17] MEDS: LORATADINE 10 MG TAB PO SCH (08:05)
[2020-04-17] MEDS: LINAGLIPTIN 5 MG TABLET PO SCH (08:05)
[2020-04-17] MEDS: DIVALPROEX ER 250 MG TAB.ER.24H PO SCH (08:05)
[2020-04-17] MEDS: DIVALPROEX ER 500 MG TAB.ER.24H PO SCH (08:05)
[2020-04-17] MEDS: TOPIRAMATE 100 MG TAB PO SCH (08:06)
[2020-04-17] MEDS: TOPIRAMATE 25 MG TAB PO SCH (08:06)
[2020-04-17] MEDS: FLUTICASONE 50MCG/SPRAY NASAL 16GM EA NOSTRIL SCH (08:06)
[2020-04-17 09:16] VITALS: BP 122/89; PULSE 91; TEMP 98.6
--- NOTE | 2020-04-17 09:17 | P.PN ---
Progress Note - Text Progress Note Date: 04/17/20 The patient's pain is markedly improved. He reports mild hematuria, and was reassured that this is expected. He is afebrile and urologically stable for discharge. He will follow up with me in 2 weeks for office cystoscopy with stent removal.
[2020-04-17 10:04] LABS: African American GFR (CKD) 125.1 (60.0-200.0); Anion Gap 6.9 mmol/L (4.00-12.00); Calcium 8.5 mg/dL (8.7-10.3); Carbon Dioxide 23.1 mmol/L (21.6-31.8)
--- NOTE | 2020-04-17 10:25 | P.DS ---
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 past medical history of type 2 diabetes, neuropathy, seizure, IBS who has not been feeling well for the last few days last 48 hours developed to have significant right-sided flank pain on and off associated with nausea without vomiting his pain become impenetrable 04/15/2020 patient ended up coming to the emergency department at [facility] where was seen and evaluated, CT of the abdomen showed an obstructing 6-7 mm calculus in the proximal right ureter causing mild right-sided hydronephrosis his UA was positive patient blood sugar was quite bed elevated he has an elevated white blood cell at 14.6. Patient was diagnosed with UTI, right-sided obstructive uropathy, large kidney stone and intractable nausea was started on hydration antiemesis medication started on antibiotics along with Flomax will be seen urology and possible need for intervention. 04/16: Patient evaluated and noted to be sitting up in bed, resting comfortably in no acute distress. Patient reports pain is much better today and well controlled with current medications. Urology plans on cystoscopy, right retrograde pyelogram, right ureteroscope with laser lithotripsy and possible st one basketing, and right urethral stent placement later on today. Patient remains afebrile temp is 98.3, blood pressure 133/74, with a heart rate of 74. 04/17: Patient was evaluated this morning, noted to be sitting up in bed in no acute distress. Yesterday he underwent cystoscopy, urethral dilatation, right ureteroscopy laser lithotripsy and stone basketing, and right ureteral stent placement. Patient tolerated the procedure well without postoperative consultations. Patient continues to have slight hematuria, expected after procedure. Blood sugars have been well controlled, labs are stable WBC 8.5 hemoglobin 13.4, sodium 138, potassium 4.0, BUN 9, creatinine 0.9. Patient will be discharged home with follow-up with PCP and urology Discharge diagnoses 1 severe abdominal pain secondary to obstructive uropathy and large kidney stone s/p cystoscopy, urethral dilatation, right ureteroscopy laser lithotripsy and stone basketing, and right ureteral stent placement 2 severe obstructive uropathy of the right side from large kidney stone 3 UTI with possible pyelonephritis 4 large kidney stone 5 type 2 diabetes 6 seizure CODE STATUS: Full code. Admit patient to the inpatient service for more than 2 night stay. The above impression and plan of care have been discussed and directed by signing physician. Shanna Alcantar nurse practitioner acting as scribe for signing physician. Plan - Discharge Summary New Discharge Prescriptions: New Ketorolac [Toradol] 10 mg PO Q6HR PRN #12 tab PRN Reason: Moderate To Severe Pain Cefuroxime Axetil [Ceftin] 500 mg PO BID 7 Days #14 tab Tamsulosin [Flomax] 0.4 mg PO PC-BRKFST #30 cap.er.24h Continue sitaGLIPtin [Januvia] 100 mg PO DAILY metFORMIN HCL 1,000 mg PO BID Topiramate [Trokendi Xr] 50 mg PO HS Topiramate [Trokendi Xr] 200 mg PO HS Fluticasone Nasal [place] [Flonase Nasal [place]] 1 spr EA NOSTRIL DAILY Doxycycline 20mg 20 mg PO BID Divalproex ER [Depakote ER] 500 mg PO DAILY Divalproex ER [Depakote ER] 250 mg PO DAILY Dicyclomine [Bentyl] 10 mg PO TID Dulaglutide [Trulicity] 1.5 mg SQ TH Loratadine 10 mg PO DAILY Discharge Medication List Dicyclomine [Bentyl] 10 mg PO TID 04/15/20 [History] Divalproex ER [Depakote ER] 250 mg PO DAILY 04/15/20 [History] Divalproex ER [Depakote ER] 500 mg PO DAILY 04/15/20 [History] Doxycycline 20mg 20 mg PO BID 04/15/20 [History] Dulaglutide [Trulicity] 1.5 mg SQ TH 04/15/20 [History] Fluticasone Nasal [place] [Flonase Nasal [place]] 1 spr EA NOSTRIL DAILY 04/15/20 [History] Loratadine 10 mg PO DAILY 04/15/20 [History] Topiramate [Trokendi Xr] 50 mg PO HS 04/15/20 [History] Topiramate [Trokendi Xr] 200 mg PO HS 04/15/20 [History] metFORMIN HCL 1,000 mg PO BID 04/15/20 [History] sitaGLIPtin [Januvia] 100 mg PO DAILY 04/15/20 [History] Cefuroxime Axetil [Ceftin] 500 mg PO BID 7 Days #14 tab 04/17/20 [Rx] Ketorolac [Toradol] 10 mg PO Q6HR PRN #12 tab 04/17/20 [Rx] Tamsulosin [Flomax] 0.4 mg PO PC-BRKFST #30 cap.er.24h 04/17/20 [Rx] Follow up Appointment(s)/Referral(s): Maged Kirkland MD [STAFF PHYSICIAN] - 05/01/20 8:20 am Min Rojas MD [Primary Care Provider] - 1-2 days (office is closed today.patient will have to call and schedule own appt.) Activity/Diet/Wound Care/Special Instructions: Reassure patient that urinary frequency and hematuria are expected. He should drink plenty of fluids. Follow up with Dr. Kirkland in 2 weeks for office cystoscopy with stent removal ([phone]). Discharge Disposition: HOME SELF-CARE
[2020-04-17] MEDS ORDERED: NON FORMULARY DRUG (Dulaglutide [Trulicity] 1.5 MG/0.5 ML Pen.Injctr) SQ SCH (18:44)
== END 2020-04-17 12:41 | disposition home or self-care (01) | DRG 660 ==
LOC: EC 11:06 → 5NMEDONC 12:54
PROVIDERS: ADMIT Internal Medicine Geriatric Medicine; ATTEND Internal Medicine Geriatric Medicine
PROC: 0TC68ZZ Extirpation of Matter from Right Ureter, Via Natural or Artificial Opening Endoscopic (ICD-10-PCS; principal; 2020-04-16 10:50)
PROC: 0T768DZ Dilation of Right Ureter with Intraluminal Device, Via Natural or Artificial Opening Endoscopic (ICD-10-PCS; principal; 2020-04-16 10:50)
DX: N13.6 Pyonephrosis (principal); E87.2 Acidosis; G40.909 Epilepsy, unspecified, not intractable, without status epilepticus; Z79.899 Other long term (current) drug therapy; Z79.84 Long term (current) use of oral hypoglycemic drugs; E11.9 Type 2 diabetes mellitus without complications
CPT/HCPCS: 36415; 74018; 74177; 80048; 80053; 81001; 82150; 83605; 83690; 85025; 85027; 87040; 96361; 96365; 96375; 99285

== ENCOUNTER → 2020-06-12 | Outpatient (CLI) | payer MEDICARE, OTHER ==
--- NOTE | 2020-06-12 10:05 | XR ---
EXAMINATION TYPE: XR KUB DATE OF EXAM: 06/12/2020 COMPARISON: 04/16/2020 HISTORY: Pain TECHNIQUE: One view abdominal series FINDINGS: The osseous structures are intact. The bowel gas pattern is nonspecific. Overlying bowel content campos its assessment of the renal outlines. Question a 2 mm calcification overlying the right renal hilum.. IMPRESSION: 1. Nonspecific abdomen. No definite sizable calcifications. Bowel content does obscure renal outline s. Question a 2 mm calcification in the region of the right UPJ overlying the right transverse proces s of L1.
--- NOTE | 2020-06-12 10:05 | US ---
EXAMINATION TYPE: US kidneys/renal and bladder DATE OF EXAM: 06/12/2020 COMPARISON: CT 2019 CLINICAL HISTORY: Calculus kidney N20.0, Calculus ureter N20.1. Follow up right kidney stones, stent placed in March 2020, removed in April 2020, patient states no pain, hematuria or other symptoms since stent removal. EXAM MEASUREMENTS: Right Kidney: 10.9 x 5.5 x 5.8 cm Left Kidney: 11.0 x 4.9 x 5.2 cm Right Kidney: No hydronephrosis or masses seen Left Kidney: No hydronephrosis or masses seen Bladder: wnl Bilateral Jets seen: right jet not seen, left jet seen There is no evidence for hydronephrosis at this point in time. No nephrolithiasis is seen. No starla s are identified. The urinary bladder is anechoic. Bilateral ureteral jets are seen. IMPRESSION: No distinct abnormality seen.
== END | disposition home or self-care (01) ==
LOC: RADUSWWP 09:15
PROVIDERS: ATTEND Urology
DX: N20.2 Calculus of kidney with calculus of ureter (principal)
CPT/HCPCS: 74018; 76770

== ENCOUNTER 2020-10-06 06:34 | Day surgery (SDC) | payer MEDICARE, OTHER ==
[2020-10-01 15:10] VITALS: BMI 33.6
[~2020-10-06 06:34] MED LIST: LACTATED RINGERS 1,000 ML IV SCH
[2020-10-06 07:02] VITALS: TEMP 97.7
[2020-10-06] MEDS ORDERED: LACTATED RINGERS 1,000 ML IV ONE (07:02)
[2020-10-06 07:13] LABS: Glucose,Whole Blood 112 mg/dL (75-99)
[2020-10-06] MEDS ORDERED: PROPOFOL 10 MG/ML 20 ML VIAL IV ONE (07:44)
--- NOTE | 2020-10-06 08:18 | P.PCN ---
Date of Procedure: 10/06/20 Description of Procedure: BRIEF HISTORY: Patient is a 40-year-old male presenting for outpatient colonoscopy for evaluation of symptoms of hemorrhage of the anus and rectum. The patient has a history of irritable bowel syndrome and was seen in the GI clinic reporting soft to loose bowel movements with associated urgency. He also reported approximately 1 month of bright red blood per rectum. No family history of inflammatory bowel disease or colon cancer. PROCEDURE PERFORMED: Colonoscopy with polypectomy and biopsy. PREOPERATIVE DIAGNOSIS: Hemorrhage of the anus and rectum, GI bleed. ESTIMATED BLOOD LOSS: Minimal. IV sedation per Anesthesia. PROCEDURE: After informed consent was obtained, the patient, was brought into the endoscopy unit. IV sedation was administered by Anesthesia under continuous monitoring. Digital rectal examination was normal. Initially the Olympus CF-190 flexible video colonoscope was then inserted in the rectum, gradually advanced into the cecum without any difficulty. Careful examination was performed as the scope was gradually being withdrawn. Ileocecal valve and the appendiceal orifice were visualized and appeared normal. Prep was excellent. Mucosa of the cecum, ascending colon, transverse colon, descending colon, sigmoid colon, and rectum appeared normal with random biopsies taken of the right and left colon in the setting of altered bowel function and a normal-appearing terminal ileum. A diminutive 2 mm ascending colon polyp was removed with cold forcep polypectomy. Retroflexion was performed in the rectum and no lesions were seen and moderate internal hemorrhoids were noted . The patient tolerated the procedure well. IMPRESSION: Diminutive ascending colon polyp removed with cold forcep polypectomy. Internal hemorrhoids. Normal-appearing colon from rectum to cecum and normal-appearing terminal ileum. Random biopsies taken of the right colon, left colon and terminal ileum. RECOMMENDATIONS: Findings of this examination were discussed with the patient. Okay to resume diet. Okay to resume medications. Await pathology from polypectomy and biopsies. Follow up in the GI clinic as scheduled. Continue local hemorrhoidal care for her bleeding with recommendations for sitz baths, Tucks pads, and topi saran steroid all/anti-inflammatory therapy. Recommend repeat colonoscopy in 7 years for colon polyps pending pathology from polypectomy.
[2020-10-06 08:34] VITALS: RESP 20
[2020-10-06 09:12] VITALS: BP 107/73; PULSE 81
== END 2020-10-06 09:14 | disposition home or self-care (01) ==
LOC: ORWHC2ENDO 06:34
PROVIDERS: ATTEND Internal Medicine
DX: K63.5 Polyp of colon (principal); K64.8 Other hemorrhoids; K62.5 Hemorrhage of anus and rectum; Z98.890 Other specified postprocedural states; E11.9 Type 2 diabetes mellitus without complications; K58.9 Irritable bowel syndrome, unspecified; R56.9 Unspecified convulsions; Z97.2 Presence of dental prosthetic device (complete) (partial); Z79.84 Long term (current) use of oral hypoglycemic drugs; Z79.899 Other long term (current) drug therapy
CPT/HCPCS: 88305; 45380; J2704

== ENCOUNTER → 2022-02-01 | Outpatient (CLI) | payer MEDICARE, OTHER ==
[2022-02-01 14:41] LABS: Basophils # (A) 0.01 X 10*3/uL (0.00-0.10); Basophils % (A) 0.1 %; Eosinophils # (A) 0.22 X 10*3/uL (0.04-0.35); Eosinophils % (A) 3.1 %; HCT 44.7 % (39.6-50.0); HGB 14.8 g/dL (13.0-17.0); Immature Grans, Automated 0.6 %; Lymphocytes # (A) 2.23 X 10*3/uL (0.90-5.00); MCH 28.7 pg (27.0-32.0); MCHC 33.1 g/dL (32.0-37.0); MCV 86.8 fL (80.0-97.0); Mean Platelet Volume 10.8 fL (9.5-12.2); Monocytes # (A) 0.36 X 10*3/uL (0.20-1.00); NRBC Per 100 WBC 0 /100 WBCS (0.0-0.0); Neutrophils # (A) 4.34 X 10*3/uL (1.80-7.70); Neutrophils % (A) 60.2 %; Platelet Count 195 X 10*3/uL (140-440); RBC 5.15 X 10*6/uL (4.40-5.60); RDW 13.2 % (11.5-14.5)
[2022-02-01 19:12] LABS: Valproic Acid (Depakene) 53.9 ug/mL (50.0-100.0)
== END | disposition home or self-care (01) ==
LOC: LABWHC1 08:28
PROVIDERS: ATTEND Psychiatry & Neurology Neurology
DX: G40.209 Localization-related (focal) (partial) symptomatic epilepsy and epileptic syndromes with complex partial seizures, not intractable, without status epilepticus (principal)
CPT/HCPCS: 36415; 80164; 80201; 84450; 84460; 85025

== ENCOUNTER 2022-07-22 16:02 | Emergency (ER) | payer MEDICARE, OTHER ==
[2022-07-22 16:19] VITALS: TEMP 98.2
[2022-07-22] MEDS ORDERED: FAMOTIDINE 20 MG/2 ML VIAL IV STA (16:43)
--- NOTE | 2022-07-22 16:48 | ED ---
Chest Pain HPI - General Chief Complaint: Chest Pain Stated Complaint: Chest Pain Time Seen by Provider: 07/22/22 16:27 Source: patient, RN notes reviewed Mode of arrival: ambulatory Limitations: no limitations - History of Present Illness Initial Comments: This is a 42-year-old male who presents to the emergency department for chest pain. Patient states he has had intermittent chest pain over the last 6 weeks. Describes this as a burning epigastric pain. He does have a history of acid reflux and is not currently being treated for this. States that he may go several days or a week at a time without any pain. The pain is typically triggered by spicy foods, however he was concerned because he did not have spicy foods today. His mother was in her late 40s when she had a heart attack. He denies any personal cardiac history. He has no associated shortness of breath. At this time, the chest pain that he had earlier today has since resolved. Denies any fevers, chills, sore throat, cough, dyspnea, palpitations, abdominal pain, nausea, vomiting, diarrhea, back pain, or headaches. MD Complaint: chest pain Onset/Timin -: week(s) - Related Data Home Medications Medication Instructions Recorded Confirmed Dicyclomine [Bentyl] 20 mg PO TID 04/15/20 07/22/22 Divalproex ER [Depakote ER] 250 mg PO BID 04/15/20 07/22/22 Divalproex ER [Depakote ER] 500 mg PO BID 04/15/20 07/22/22 Topiramate [Trokendi Xr] 50 mg PO HS 04/15/20 07/22/22 Topiramate [Trokendi Xr] 200 mg PO HS 04/15/20 07/22/22 metFORMIN HCL [Glucophage] 1,000 mg PO BID 04/15/20 07/22/22 sitaGLIPtin [Januvia] 100 mg PO DAILY 04/15/20 07/22/22 Albuterol Inhaler [Ventolin Hfa 2 puff INHALATION RT-Q6H PRN 07/22/22 07/22/22 Inhaler] Doxycycline Hyclate 20mg Tab 20 mg PO BID 07/22/22 07/22/22 Ergocalciferol (Vitamin D2) 1,250 mcg PO WE 07/22/22 07/22/22 [Drisdol (50,000 Iu)] glipiZIDE [Glucotrol] 10 mg PO DAILY 07/22/22 07/22/22 Previous Rx's Medication Instructions Recorded Pantoprazole [Protonix] 40 mg PO DAILY #15 tab 07/22/22 Allergies Allergy/AdvReac Type Severity Reaction Status Date / Time No Known Allergies Allergy Verified 07/22/22 18:05 Review of Systems ROS Statement: Those systems with pertinent positive or pertinent negative responses have been documented in the HPI. ROS Other: All systems not noted in ROS Statement are negative. Past Medical History Past Medical History: Diabetes Mellitus, GERD/Reflux, Seizure Disorder Additional Past Medical History / Comment(s): IBS - no dairy. last seizure over 1 year ago. RECENT BLEEDING FROM RECTUM. LITHOTRIPSY History of Any Multi-Drug Resistant Organisms: None Reported Past Surgical History: No Surgical Hx Reported Additional Past Surgical History / Comment(s): CYSTOSCOPY WITH LITHOTRIPSY Past Anesthesia/Blood Transfusion Reactions: No Reported Reaction Past Psychological History: No Psychological Hx Reported Smoking Status: Never smoker Past Alcohol Use History: None Reported Past Drug Use History: None Reported - Past Family History Mother Family Medical History: No Reported History General Exam Limitations: no limitations General appearance: alert, in no apparent distress Head exam: Present: atraumatic, normocephalic, normal inspection Respiratory exam: Present: normal lung sounds bilaterally. Absent: respiratory distress, wheezes, rales, rhonchi, stridor Cardiovascular Exam: Present: regular rate, normal rhythm, normal heart sounds. Absent: systolic murmur, diastolic murmur, rubs, gallop, clicks GI/Abdominal exam: Present: soft, normal bowel sounds. Absent: distended, tenderness, guarding, rebound, rigid Neurological exam: Present: alert, oriented X3, CN II-XII intact Psychiatric exam: Present: normal affect, normal mood Skin exam: Present: warm, dry, intact, normal color. Absent: rash Course Vital Signs 07/22/22 07/22/22 07/22/22 16:14 17:00 18:51 Temperature 98.2 F Pulse Rate 110 H 98 87 Respiratory 20 16 16 Rate Blood Pressure 123/87 111/69 130/65 O2 Sat by Pulse 98 94 L 96 Oximetry Chest Pain MDM - MDM This is a 42-year-old male who presents to the emergency department for chest pain. Was pt. sent in by a medical professional or institution? @ -No Did you speak to anyone other than the patient for history? @ -No Did you review nursing and triage notes? @ -Yes, and I agree, it is accurate with regards to the patient's symptoms. Were old charts reviewed? @ -No Differential Diagnosis? @ -Differential Chest Pain: Stable Angina, Unstable Angina, STEMI, NSTEMI Aortic Dissection, Pneumothorax, Musculoskeletal, Esophageal Spasm GERD, Cholecystitis, Pancreatitis, Zoster, this is not meant to be an all-inclusive list. EKG interpreted by me (3pts min.)? @ -Sinus tachycardia. Ventricular rate 100 bpm, MD interval 134 ms, QRS duration 142 ms, QTC 393 ms. X-rays interpreted by me (1pt min.)? @ -Chest x-ray obtained, my interpretation identifies no localized consolidations or infiltrates. What testing was considered but not performed? (CT, X-rays, U/S, labs)? Why? @ -None What meds were considered but not given? Why? @ -None Did you discuss the management of the patient with other professionals? @ -No Did you reconcile home meds? @ -No Was smoking cessation discussed for >3mins.? @ -No Was critical care preformed (if so, how long)? @ -No Were there social determinants of health that impacted care today? How? (Homelessness, low income, unemployed, alcoholism, drug addiction, transportation, low edu. Level, literacy, decrease access to med. care, snf, rehab)? @ -No Was there de-escalation of care discussed even if they declined? (Discuss DNR or withdrawal of care, Hospice)? @ -No What co-morbidities impacted this encounter? (DM, HTN, Smoking, COPD, CAD, Cancer, CVA, Hep., AIDS, mental health diagnosis, sleep apnea, morbid obesity)? @ -DM, morbid obesity, GERD, Epilepsy Was patient admitted / discharged? @ -Discharged. Lab work obtained and found to be nonactionable including a ne gative troponin. Chest x-ray reveals possible mild vascular congestion. Clinically, the patient has no evidence of CHF. He has no swelling, shortness of breath, coughing, or irregularities on auscultation of the heart and lungs. While he does not have any active pain, he was given a dose of Pepcid through the IV. Symptoms most consistent with esophageal reflux, given the burning sensation, increase in pain with spicy foods, and intermittent nature. Prescription for pantoprazole provided with dosing instructions reviewed. He is instructed to take this 30 minutes before eating or taking any other medications. He will follow up with his primary care provider this week to reevaluate symptoms and see if the medication is been effective. Advised he avoid spicy and acidic foods and eating right before bed. Undiagnosed new problem with uncertain prognosis? @ -None Drug Therapy requiring intensive monitoring for toxicity (Heparin, Nitro, Insulin, Cardizem)? @ -None Were any procedures done? @ -None Diagnosis/symptom? @ -Atypical chest pain, GERD Acute, or Chronic, or Acute on Chronic? @ -Chronic Uncomplicated (without systemic symptoms) or Complicated (systemic symptoms)? @ -Uncomplicated Side effects of treatment? @ -None Exacerbation, Progression, or Severe Exacerbation] @ -Stable Poses a threat to life or bodily function? @ -No Return precautions reviewed in depth, the patient is instructed to return to the emergency department with any new, worsening, or concerning symptoms. Patient verbalized understanding. This case was discussed in detail with the attending ED physician, Dr. Harley. Presentation, findings, and treatment plan discussed in detail as well. Disposition Clinical Impression: Atypical chest pain, GERD (gastroesophageal reflux disease) Disposition: HOME SELF-CARE Instructions (If sedation given, give patient instructions): Diet for Stomach Ulcers and Gastritis (ED), GERD (Gastroesophageal Reflux Disease) (ED), Noncardiac Chest Pain (ED) Additional Instructions: Return to the emergency department with any new, worsening, or concerning symptoms. Start taking the Protonix once daily each morning. Take this 30 minutes before eating or taking any other medications. Avoid spicy or acidic foods and do not eat for a couple of hours before bed. Follow up with your primary care provider in 1-2 days. Prescriptions: Pantoprazole [Protonix] 40 mg PO DAILY #15 tab Is patient prescribed a controlled substance at d/c from ED?: No Referrals: Alejo Mo MD [Primary Care Provider] - 1-2 days
--- NOTE | 2022-07-22 17:07 | XR ---
EXAMINATION TYPE: XR chest 2V DATE OF EXAM: 07/22/2022 COMPARISON: Chest x-ray June 24, 2010 HISTORY: Chest pain. TECHNIQUE: Frontal and lateral views of the chest are obtained. FINDINGS: Low lung volumes and mild central vascular congestion. Heart size upper limits of normal. No pleural effusion or pneumothorax seen bilaterally. The osseous structures are intact. IMPRESSION: Perhaps mild central vascular congestion. Correlate clinically.
[2022-07-22 18:00] VITALS: RESP 16
[2022-07-22 18:02] LABS: Basophils % (A) 0 %; Eosinophils # (A) 0.2 k/uL (0-0.7); Eosinophils % (A) 3 %; HGB 14.8 gm/dL (13.0-17.5); Lymphocytes # (A) 2.9 k/uL (1.0-4.8); Lymphocytes % (A) 45 %; MCHC 33.7 g/dL (31.0-37.0); Mean Platelet Volume 8.1; Monocytes # (A) 0.2 k/uL (0-1.0); Monocytes % (A) 3 %; Neutrophils # (A) 3.1 k/uL (1.3-7.7); Neutrophils % (A) 48 %; Platelet Count 185 k/uL (150-450); RBC 5.11 m/uL (4.30-5.90); RDW 13.2 % (11.5-15.5); WBC 6.5 k/uL (3.8-10.6)
[2022-07-22 18:13] LABS: ALT 52 U/L (4-49); AST 25 U/L (17-59); African American GFR (CKD) >90 (>60 ml/min/1.73 sqM); Albumin 4.3 g/dL (3.5-5.0); Alkaline Phosphatase 68 U/L (38-126); Anion Gap 11 mmol/L; Blood Urea Nitrogen 12 mg/dL (9-20); Calcium 9.8 mg/dL (8.4-10.2); Carbon Dioxide 22 mmol/L (22-30); Chloride 105 mmol/L (98-107); Glucose 163 mg/dL (74-99); Magnesium 1.6 mg/dL (1.6-2.3); Non-African American GFR(CKD) >90 (>60 ml/min/1.73 sqM); Potassium 4.5 mmol/L (3.5-5.1); Sodium 138 mmol/L (137-145); Total Bilirubin 0.6 mg/dL (0.2-1.3); Total Protein 6.9 g/dL (6.3-8.2)
[2022-07-22 18:14] LABS: Prothrombin Time 10.7 sec (9.0-12.0)
[2022-07-22 19:00] VITALS: BP 130/65; PULSE 87
== END 2022-07-22 19:03 | disposition home or self-care (01) ==
LOC: EC 16:02
DX: K21.9 Gastro-esophageal reflux disease without esophagitis (principal); E66.01 Morbid (severe) obesity due to excess calories; G40.909 Epilepsy, unspecified, not intractable, without status epilepticus; E11.9 Type 2 diabetes mellitus without complications; Z79.84 Long term (current) use of oral hypoglycemic drugs; Z79.899 Other long term (current) drug therapy; Z68.41 Body mass index [BMI] 40.0-44.9, adult
CPT/HCPCS: 36415; 71046; 80053; 83735; 84484; 85025; 85610; 85730; 93005; 96374; 99285

== ENCOUNTER 2023-12-12 14:29 | Emergency (ER) | payer MEDICARE, OTHER ==
[2023-12-12 14:41] LABS: Glucose,Whole Blood 201 mg/dL (70-110)
--- NOTE | 2023-12-12 15:07 | ED ---
General Adult HPI - General Chief complaint: Recheck/Abnormal Lab/Rx Stated complaint: Hyperglycemic Time Seen by Provider: 12/12/23 14:43 Source: patient, RN notes reviewed, old records reviewed Mode of arrival: ambulatory Limitations: no limitations - History of Present Illness Initial comments: 43-year-old male presents for evaluation of elevated blood sugar. Patient does have history of diabetes as and is on oral hypoglycemic agents and has been compliant. He states his blood sugar was 400. He is asymptomatic and admits to eating a pop tart and dried cherries today. Patient has no complaints. Recheck blood sugar is 200. - Related Data Home Medications Medication Instructions Recorded Confirmed Dicyclomine [Bentyl] 20 mg PO TID 04/15/20 07/22/22 Divalproex ER [Depakote ER] 250 mg PO BID 04/15/20 07/22/22 Divalproex ER [Depakote ER] 500 mg PO BID 04/15/20 07/22/22 Topiramate [Trokendi Xr] 50 mg PO HS 04/15/20 07/22/22 Topiramate [Trokendi Xr] 200 mg PO HS 04/15/20 07/22/22 metFORMIN HCL [Glucophage] 1,000 mg PO BID 04/15/20 07/22/22 sitaGLIPtin [Januvia] 100 mg PO DAILY 04/15/20 07/22/22 Albuterol Inhaler [Ventolin Hfa 2 puff INHALATION RT-Q6H PRN 07/22/22 07/22/22 Inhaler] Doxycycline Hyclate 20mg Tab 20 mg PO BID 07/22/22 07/22/22 Ergocalciferol (Vitamin D2) 1,250 mcg PO WE 07/22/22 07/22/22 [Drisdol (50,000 Iu)] glipiZIDE [Glucotrol] 10 mg PO DAILY 07/22/22 07/22/22 Previous Rx's Medication Instructions Recorded Pantoprazole [Protonix] 40 mg PO DAILY #15 tab 07/22/22 Allergies Allergy/AdvReac Type Severity Reaction Status Date / Time No Known Allergies Allergy Verified 07/22/22 18:05 Review of Systems ROS Statement: Those systems with pertinent positive or pertinent negative responses have been documented in the HPI. ROS Other: All systems not noted in ROS Statement are negative. Past Medical History Past Medical History: Diabetes Mellitus, GERD/Reflux, Seizure Disorder Additional Past Medical History / Comment(s): IBS - no dairy. last seizure over 1 year ago. RECENT BLEEDING FROM RECTUM. LITHOTRIPSY History of Any Multi-Drug Resistant Organisms: None Reported Past Surgical History: No Surgical Hx Reported Additional Past Surgical History / Comment(s): CYSTOSCOPY WITH LITHOTRIPSY Past Anesthesia/Blood Transfusion Reactions: No Reported Reaction Past Psychological History: No Psychological Hx Reported Smoking Status: Never smoker Past Alcohol Use History: None Reported Past Drug Use History: None Reported - Past Family History Mother Family Medical History: No Reported History General Exam Limitations: no limitations General appearance: alert, in no apparent distress Head exam: Present: atraumatic, normocephalic Eye exam: Present: normal appearance, PERRL ENT exam: Present: normal exam Neck exam: Present: normal inspection. Absent: tenderness, meningismus Respiratory exam: Present: normal lung sounds bilaterally. Absent: respiratory distress, wheezes Cardiovascular Exam: Present: regular rate, normal rhythm GI/Abdominal exam: Present: soft. Absent: distended, tenderness, guarding Extremities exam: Present: normal inspection Neurological exam: Present: alert, oriented X3, CN II-XII intact. Absent: motor sensory deficit Psychiatric exam: Present: normal affect, normal mood Skin exam: Present: warm, dry, intact Course Vital Signs 12/12/23 14:36 Temperature 98.5 F Pulse Rate 84 Respiratory 16 Rate Blood Pressure 118/83 O2 Sat by Pulse 98 Oximetry Medical Decision Making - Medical Decision Making Was pt. sent in by a medical professional or institution (, PA, [employer], urgent care, hospital, or [facility]...) When possible be specific @ - Did you speak to anyone other than the patient for history (EMS, parent, family, police, friend...)? What history was obtained from this source @ -No Did you review nursing and triage notes (agree or disagree)? Why? @ -I reviewed and agree with nursing and triage notes Were old charts reviewed (outside hosp., previous admission, EMS record, old EKG, old radiological studies, urgent care reports/EKG's, [facility] records)? Report findings @ -No old charts were reviewed Differential Diagnosis glycemia, DKA, dehydration EKG interpreted by me (3pts min.). @ -As above X-rays interpreted by me (1pt min.). @ -None done CT interpreted by me (1pt min.). @ -None done U/S interpreted by me (1pt. min.). @ -None done What testing was considered but not performed or refused? (CT, X-rays, U/S, labs)? Why? @ -None What meds were considered but not given or refused? Why? @ -None Did you discuss the management of the patient with other professionals (professionals i.e. , PA, [employer], lab, RT, psych nurse, social media content manager, skoog operator, teacher, credit products officer, immigration case worker)? Give summary @ -No Was smoking cessation discussed for >3mins.? @ -No Was critical care preformed (if so, how long)? @ -No Were there social determinants of health that impacted care today? How? (Homelessness, low income, unemployed, alcoholism, drug addiction, transportation, low edu. Level, literacy, decrease access to med. care, group home, rehab)? @ -No Was there de-escalation of care discussed even if they declined (Discuss DNR or withdrawal of care, Hospice)? DNR status @ -No What co-morbidities impacted this encounter? (DM, HTN, Smoking, COPD, CAD, Cancer, CVA, ARF, Chemo, Hep., AIDS, mental health diagnosis, sleep apnea, morbid obesity)? @ -DM Was patient admitted / discharged? Hospital course, mention meds given and route, prescriptions, significant lab abnormalities, going to OR and other pertinent info. @Blood sugar is 200. He is asymptomatic. He will monitor glucose at home and take medication as prescribed. Undiagnosed new problem with uncertain prognosis? @ -No Drug Therapy requiring intensive monitoring for toxicity (Heparin, Nitro, Insulin, Cardizem)? @ -No Were any procedures done? @ -No Diagnosis/symptom? @Hyperglycemia in a diabetic Acute, or Chronic, or Acute on Chronic? @ -acute Uncomplicated (without systemic symptoms) or Complicated (systemic symptoms)? @ -Default Side effects of treatment? @ -No Exacerbation, Progression, or Severe Exacerbation? @ -No Poses a threat to life or bodily function? How? (Chest pain, [place], [place], pneumonia, PE, COPD, DKA, ARF, appy, cholecystitis, CVA, Diverticulitis, Homicidal, Suicidal, threat to staff... and all critical care pts) @ - Low Risk - Lab Data Lab Results 12/12/23 Range/Units 14:38 POC Glucose (mg/dL) 201 H (70-110) mg/dL POC Glu Service Secretary JOSE JuliocesarJorge Disposition Clinical Impression: Hyperglycemia Disposition: HOME SELF-CARE Condition: Fair Instructions (If sedation given, give patient instructions): Diabetes and Exercise (ED), Diabetic Hyperglycemia (ED) Is patient prescribed a controlled substance at d/c from ED?: No Referrals: Nonstaff,Physician [Primary Care Provider] - 1-2 days Time of Disposition: 15:07
[2023-12-12 15:52] VITALS: BP 136/82; PULSE 90; RESP 18; TEMP 98.2
== END 2023-12-12 15:52 | disposition home or self-care (01) ==
LOC: EC 14:29
DX: E11.65 Type 2 diabetes mellitus with hyperglycemia (principal); Z79.84 Long term (current) use of oral hypoglycemic drugs
CPT/HCPCS: 99284

== ENCOUNTER 2024-04-07 16:11 | Emergency (ER) | payer MEDICARE, OTHER ==
[2024-04-07 16:23] VITALS: TEMP 98.6
--- NOTE | 2024-04-07 16:38 | ED ---
General Adult HPI - General Chief complaint: Shortness of Breath Stated complaint: cough/CRISPIN Time Seen by Provider: 04/07/24 16:21 Source: patient, EMS Mode of arrival: EMS Limitations: no limitations - History of Present Illness Initial comments: This is a 43-year-old male with history of diabetes, epilepsy, and asthma who is presenting to the emergency room via EMS for chief complaint of difficulty breathing and cough that has been worsening over the past week. States that over the past 2 days he has been experiencing a productive cough with green m ucus and chills with no reported fevers. Endorses rhinorrhea, chest tightness with coughing and nausea. He denies chest pain, recent prolonged travel, recent surgeries, peripheral edema/unilateral leg swelling, history of DVT/PE, family history of blood clotting disorders. He denies hemoptysis, urinary or bowel habit complaints. - Related Data Home Medications Medication Instructions Recorded Confirmed Dicyclomine [Bentyl] 20 mg PO TID 04/15/20 07/22/22 Divalproex ER [Depakote ER] 250 mg PO BID 04/15/20 07/22/22 Divalproex ER [Depakote ER] 500 mg PO BID 04/15/20 07/22/22 Topiramate [Trokendi Xr] 50 mg PO HS 04/15/20 07/22/22 Topiramate [Trokendi Xr] 200 mg PO HS 04/15/20 07/22/22 metFORMIN HCL [Glucophage] 1,000 mg PO BID 04/15/20 07/22/22 sitaGLIPtin [Januvia] 100 mg PO DAILY 04/15/20 07/22/22 Albuterol Inhaler [Ventolin Hfa 2 puff INHALATION RT-Q6H PRN 07/22/22 07/22/22 Inhaler] Doxycycline Hyclate 20mg Tab 20 mg PO BID 07/22/22 07/22/22 Ergocalciferol (Vitamin D2) 1,250 mcg PO WE 07/22/22 07/22/22 [Drisdol (50,000 Iu)] glipiZIDE [Glucotrol] 10 mg PO DAILY 07/22/22 07/22/22 Previous Rx's Medication Instructions Recorded Pantoprazole [Protonix] 40 mg PO DAILY #15 tab 07/22/22 Azithromycin [Zithromax] 500 mg PO DAILY #4 tab 04/07/24 Allergies Allergy/AdvReac Type Severity Reaction Status Date / Time No Known Allergies Allergy Verified 04/07/24 16:19 Review of Systems ROS Statement: Those systems with pertinent positive or pertinent negative responses have been documented in the HPI. ROS Other: All systems not noted in ROS Statement are negative. Past Medical History Past Medical History: Diabetes Mellitus, GERD/Reflux, Seizure Disorder Additional Past Medical History / Comment(s): IBS - no dairy. last seizure over 1 year ago. RECENT BLEEDING FROM RECTUM. LITHOTRIPSY History of Any Multi-Drug Resistant Organisms: None Reported Past Surgical History: No Surgical Hx Reported Additional Past Surgical History / Comment(s): CYSTOSCOPY WITH LITHOTRIPSY Past Anesthesia/Blood Transfusion Reactions: No Reported Reaction Past Psychological History: No Psychological Hx Reported Smoking Status: Never smoker Past Alcohol Use History: None Reported Past Drug Use History: None Reported - Past Family History Mother Family Medical History: No Reported History General Exam Limitations: no limitations General appearance: alert, in no apparent distress ENT exam: Present: normal exam, mucous membranes moist Neck exam: Present: normal inspection. Absent: tenderness, meningismus, lymphadenopathy Respiratory exam: Present: normal lung sounds bilaterally, wheezes (diffuse). Absent: respiratory distress, rales, rhonchi, stridor Cardiovascular Exam: Present: regular rate, normal rhythm, normal heart sounds. Absent: systolic murmur, diastolic murmur, rubs, gallop, clicks GI/Abdominal exam: Present: soft, normal bowel sounds. Absent: distended, tenderness, guarding, rebound, rigid Extremities exam: Present: normal inspection, full ROM, normal capillary refill. Absent: tenderness, pedal edema, joint swelling, calf tenderness Back exam: Present: normal inspection Course Vital Signs 04/07/24 04/07/24 04/07/24 16:14 18:24 18:31 Temperature 98.6 F Pulse Rate 95 88 90 Respiratory 20 18 18 Rate Blood Pressure 120/75 O2 Sat by Pulse 96 Oximetry Medical Decision Making - Medical Decision Making Was pt. sent in by a medical professional or institution (, PA, PRODUCTION SUPPLY EQUIPMENT TENDER, urgent care, hospital, or fci...) When possible be specific @ -No Did you speak to anyone other than the patient for history (EMS, parent, family, police, friend...)? What history was obtained from this source @ -No Did you review nursing and triage notes (agree or disagree)? Why? @ -I reviewed and agree with nursing and triage notes Were old charts reviewed (outside hosp., previous admission, EMS record, old EKG, old radiological studies, urgent care reports/EKG's, fci records)? Report findings @ -No old charts were reviewed Differential Diagnosis (chest pain, altered mental status, abdominal pain women, abdominal pain men, vaginal bleeding, weakness, fever, dyspnea, syncope, headache, dizziness, GI bleed, back pain, seizure, CVA, palpatations, mental health, musculoskeletal)? @ -Differential Dyspnea: Coronary syndrome, arrhythmia, tamponade, asthma, COPD, pulmonary embolism, pneumonia, pneumothorax, pulmonary effusion, anaphylaxis, diabetic ketoacidosis, flailed chest, pulmonary contusion, diaphragmatic rupture, anemia, neuromuscular, this is not meant to be an all-inclusive list. EKG interpreted by me (3pts min.). @ -Completed at 1657 sinus rhythm with a ventricular rate of 87, TN interval 118, QRS 141, QTc 425. X-rays interpreted by me (1pt min.). @ -Chest x-ray reveals no acute cardiopulmonary process or disease CT interpreted by me (1pt min.). @ -None done U/S interpreted by me (1pt. min.). @ -None done What testing was considered but not performed or refused? (CT, X-rays, U/S, labs)? Why? @ -None What meds were considered but not given or refused? Why? @ -None Did you discuss the management of the patient with other professionals (professionals i.e. , PA, PRODUCTION SUPPLY EQUIPMENT TENDER, lab, RT, psych nurse, social media strategist, admiralty lawyer, te acher, pharmaceutical officer, home health care case manager)? Give summary @ -No Was smoking cessation discussed for >3mins.? @ -No Was critical care preformed (if so, how long)? @ -No Were there social determinants of health that impacted care today? How? (Homelessness, low income, unemployed, alcoholism, drug addiction, transportation, low edu. Level, literacy, decrease access to med. care, longterm, rehab)? @ -No Was there de-escalation of care discussed even if they declined (Discuss DNR or withdrawal of care, Hospice)? DNR status @ -No What co-morbidities impacted this encounter? (DM, HTN, Smoking, COPD, CAD, Cancer, CVA, ARF, Chemo, Hep., AIDS, mental health diagnosis, sleep apnea, morbid obesity)? @ -None Was patient admitted / discharged? Hospital course, mention meds given and route, prescriptions, significant lab abnormalities, going to OR and other pertinent info. @ -discharge. 43-year-old male presenting with productive cough and difficulty breathing. Vitals are stable on arrival, on evaluation patient is not exhibiting signs of respiratory distress. Oxygen saturation a 90s on room air. Patient noted to have mild expiratory wheezing bilateral lung cohn. He was provided with dose of Solu-Medrol and a DuoNeb breathing treatment be evaluated via shortness of breath workup including chest x-ray and EKG. He is in agreement with this plan. PERC rule was used to rule out PE due to no criteria being present. Additionally, Wells score use risk of PE resulting in 0 points is a low risk therefore D-dimer is not added to patient's laboratory testing. Laboratory studies including cardiac enzymes within normal limits. Viral swab negative. Chest x-ray no acute findings. On reevaluation patient states that breathing treatment has aided in relief of chest tightness. With concern for productive cough, intermittent chills/fevers over the past 7 to 10 days patient will be treated for tracheal bacterial bronchitis with azithromycin. First dose received the emergency department and full course sent to his pharmacy. Case discussed with Dr. Brumfield Undiagnosed new problem with uncertain prognosis? @ -No Drug Therapy requiring intensive monitoring for toxicity (Heparin, Nitro, Insulin, Cardizem)? @ -No Were any procedures done? @ -No Diagnosis/symptom? @ -tracheobronchitis- bacterial Acute, or Chronic, or Acute on Chronic? @ -acute Uncomplicated (without systemic symptoms) or Complicated (systemic symptoms)? @ -uncomplicated Side effects of treatment? @ -No Exacerbation, Progression, or Severe Exacerbation? @ -No Poses a threat to life or bodily function? How? (Chest pain, [place], [place], pneumonia, PE, COPD, DKA, ARF, appy, cholecystitis, CVA, Diverticulitis, Homicidal, Suicidal, threat to staff... and all critical care pts) @ -No - Lab Data Result diagrams: 04/07/24 17:10 04/07/24 17:10 Lab Results 04/07/24 04/07/24 04/07/24 Range/Units 17:10 17:10 17:10 WBC 7.9 (3.8-10.6) k/uL RBC 5.13 (4.30-5.90) m/uL Hgb 14.4 (13.0-17.5) gm/dL Hct 43.8 (39.0-53.0) % MCV 85.3 (80.0-100.0) fL MCH 28.2 (25.0-35.0) pg MCHC 33.0 (31.0-37.0) g/dL RDW 13.0 (11.5-15.5) % Plt Count 201 (150-450) k/uL MPV 7.8 Neutrophils % 56 % Lymphocytes % 36 % Monocytes % 4 % Eosinophils % 2 % Basophils % 0 % Neutrophils # 4.4 (1.3-7.7) k/uL Lymphocytes # 2.9 (1.0-4.8) k/uL Monocytes # 0.3 (0-1.0) k/uL Eosinophils # 0.2 (0-0.7) k/uL Basophils # 0.0 (0-0.2) k/uL PT 10.5 (10.0-12.5) sec INR 0.9 (<1.2) APTT 23.5 (22.0-30.0) sec Sodium 139 (137-145) mmol/L Potassium 4.2 (3.5-5.1) mmol/L Chloride 109 H (98-107) mmol/L Carbon Dioxide 19 L (22-30) mmol/L Anion Gap 11 mmol/L BUN 14 (9-20) mg/dL Creatinine 1.03 (0.66-1.25) mg/dL Est GFR (CKD-EPI)AfAm >90 (>60 ml/min/1.73 sqM) Est GFR (CKD-EPI)NonAf 90 (>60 ml/min/1.73 sqM) Glucose 184 H (74-99) mg/dL Calcium 9.9 (8.4-10.2) mg/dL Magnesium 2.1 (1.6-2.3) mg/dL Total Bilirubin 0.6 (0.2-1.3) mg/dL AST 18 (17-59) U/L ALT 12 (4-49) U/L Alkaline Phosphatase 88 (38-126) U/L Troponin I (0.000-0.034) ng/mL Total Protein 7.5 (6.3-8.2) g/dL Albumin 4.6 (3.5-5.0) g/dL Influenza Type A (PCR) (Not Detectd) Influenza Type B (PCR) (Not Detectd) RSV (PCR) (Not Detectd) SARS-CoV-2 (PCR) (Not Detectd) 04/07/24 04/07/24 Range/Units 17:10 17:10 WBC (3.8-10.6) k/uL RBC (4.30-5.90) m/uL Hgb (13.0-17.5) gm/dL Hct (39.0-53.0) % MCV (80.0-100.0) fL MCH (25.0-35.0) pg MCHC (31.0-37.0) g/dL RDW (11.5-15.5) % Plt Count (150-450) k/uL MPV Neutrophils % % Lymphocytes % % Monocytes % % Eosinophils % % Basophils % % Neutrophils # (1.3-7.7) k/uL Lymphocytes # (1.0-4.8) k/uL Monocytes # (0-1.0) k/uL Eosinophils # (0-0.7) k/uL Basophils # (0-0.2) k/uL PT (10.0-12.5) sec INR (<1.2) APTT (22.0-30.0) sec Sodium (137-145) mmol/L Potassium (3.5-5.1) mmol/L Chloride (98-107) mmol/L Carbon Dioxide (22-30) mmol/L Anion Gap mmol/L BUN (9-20) mg/dL Creatinine (0.66-1.25) mg/dL Est GFR (CKD-EPI)AfAm (>60 ml/min/1.73 sqM) Est GFR (CKD-EPI)NonAf (>60 ml/min/1.73 sqM) Glucose (74-99) mg/dL Calcium (8.4-10.2) mg/dL Magnesium (1.6-2.3) mg/dL Total Bilirubin (0.2-1.3) mg/dL AST (17-59) U/L ALT (4-49) U/L Alkaline Phosphatase (38-126) U/L Troponin I <0.012 (0.000-0.034) ng/mL Total Protein (6.3-8.2) g/dL Albumin (3.5-5.0) g/dL Influenza Type A (PCR) Not Detected (Not Detectd) Influenza Type B (PCR) Not Detected (Not Detectd) RSV (PCR) Not Detected (Not Detectd) SARS-CoV-2 (PCR) Not Detected (Not Detectd) Disposition Clinical Impression: Tracheobronchitis Disposition: HOME SELF-CARE Condition: Stable Instructions (If sedation given, give patient instructions): Acute Bronchitis (ED) Additional Instructions: Please return to the Emergency Department if symptoms worsen or any other concerns. Complete full course of antibiotics as prescribed. Prescriptions: Azithromycin [Zithromax] 500 mg PO DAILY #4 tab Is patient prescribed a controlled substance at d/c from ED?: No Referrals: Nonstaff,Physician [Primary Care Provider] - 1-2 days Time of Disposition: 18:29
--- NOTE | 2024-04-07 16:52 | XR ---
EXAMINATION TYPE: XR chest 2V DATE OF EXAM: 04/07/2024 4:47 PM COMPARISON: Previous chest radiograph dated 07/22/2022. CLINICAL INDICATION: Male, 43 years old with history of difficulty breathing; [facility] TECHNIQUE: XR chest 2V Frontal and lateral views of the chest. FINDINGS: Lungs/Pleura: There is no evidence of pleural effusion, focal consolidation, or pneumothorax. Pulmonary vascularity: Unremarkable. Heart/mediastinum: Cardiomediastinal silhouette is unremarkable. Musculoskeletal: No acute osseous pathology. Other findings: None IMPRESSION: No acute cardiopulmonary disease/process. [facility], , 04/07/2024 4:50 PM
[2024-04-07 17:16] LABS: Basophils % (A) 0 %; Eosinophils # (A) 0.2 k/uL (0-0.7); Eosinophils % (A) 2 %; HCT 43.8 % (39.0-53.0); HGB 14.4 gm/dL (13.0-17.5); Lymphocytes # (A) 2.9 k/uL (1.0-4.8); Lymphocytes % (A) 36 %; MCH 28.2 pg (25.0-35.0); MCV 85.3 fL (80.0-100.0); Mean Platelet Volume 7.8; Monocytes # (A) 0.3 k/uL (0-1.0); Monocytes % (A) 4 %; Neutrophils # (A) 4.4 k/uL (1.3-7.7); Neutrophils % (A) 56 %; Platelet Count 201 k/uL (150-450); RBC 5.13 m/uL (4.30-5.90); WBC 7.9 k/uL (3.8-10.6)
[2024-04-07 17:25] LABS: INR 0.9 (<1.2); Partial Thromboplastin Time 23.5 sec (22.0-30.0); Prothrombin Time 10.5 sec (10.0-12.5)
[2024-04-07 17:27] LABS: ALT 12 U/L (4-49); AST 18 U/L (17-59); African American GFR (CKD) >90 (>60 ml/min/1.73 sqM); Albumin 4.6 g/dL (3.5-5.0); Alkaline Phosphatase 88 U/L (38-126); Anion Gap 11 mmol/L; Blood Urea Nitrogen 14 mg/dL (9-20); Calcium 9.9 mg/dL (8.4-10.2); Carbon Dioxide 19 mmol/L (22-30); Chloride 109 mmol/L (98-107); Glucose 184 mg/dL (74-99); Magnesium 2.1 mg/dL (1.6-2.3); Non-African American GFR(CKD) 90 (>60 ml/min/1.73 sqM); Potassium 4.2 mmol/L (3.5-5.1); Sodium 139 mmol/L (137-145); Total Bilirubin 0.6 mg/dL (0.2-1.3); Total Protein 7.5 g/dL (6.3-8.2)
[2024-04-07] MEDS: methylPREDNISolone SOD SUCCI 125 MG/2 ML VIAL IV STA (17:56)
[2024-04-07] MEDS: IPRATROPIUM-ALBUTEROL 3 ML NEB INHALATION STA (18:22)
[2024-04-07 18:25] VITALS: RESP 18
[2024-04-07] MEDS: AZITHROMYCIN 500 MG TAB PO STA (18:45)
[2024-04-07 18:53] VITALS: BP 109/79; PULSE 106
== END 2024-04-07 18:55 | disposition home or self-care (01) ==
LOC: EC 16:11
DX: J40 Bronchitis, not specified as acute or chronic (principal); E11.9 Type 2 diabetes mellitus without complications; G40.909 Epilepsy, unspecified, not intractable, without status epilepticus
CPT/HCPCS: 36415; 94640; 93005; 80053; 83735; 84484; 85025; 85610; 85730; 87636; 71046; 99285; 96374; J2919

== ENCOUNTER 2024-05-21 00:30 | Emergency (ER) | payer MEDICARE, OTHER ==
[2024-05-21 00:37] LABS: Glucose,Whole Blood 109 mg/dL (70-110)
[2024-05-21 00:49] VITALS: BP 130/93; PULSE 82; RESP 18; TEMP 97.8
--- NOTE | 2024-05-21 01:02 | ED ---
General Adult HPI - General Chief complaint: Recheck/Abnormal Lab/Rx Stated complaint: Headache Time Seen by Provider: 05/21/24 00:50 Source: EMS Mode of arrival: EMS - History of Present Illness Initial comments: 44-year-old male presenting with concern for his blood sugar. Patient reports that earlier his sugar was at 99 which she reports is "low for him". He was having a minor headache at the time. Patient is having no headache at this time. Current blood glucose is 109. Patient feels well and has no complaints at this time. He is requesting a cab. - Related Data Home Medications Medication Instructions Recorded Confirmed Dicyclomine [Bentyl] 20 mg PO TID 04/15/20 07/22/22 Divalproex ER [Depakote ER] 250 mg PO BID 04/15/20 07/22/22 Divalproex ER [Depakote ER] 500 mg PO BID 04/15/20 07/22/22 Topiramate [Trokendi Xr] 50 mg PO HS 04/15/20 07/22/22 Topiramate [Trokendi Xr] 200 mg PO HS 04/15/20 07/22/22 metFORMIN HCL [Glucophage] 1,000 mg PO BID 04/15/20 07/22/22 sitaGLIPtin [Januvia] 100 mg PO DAILY 04/15/20 07/22/22 Albuterol Inhaler [Ventolin Hfa 2 puff INHALATION RT-Q6H PRN 07/22/22 07/22/22 Inhaler] Doxycycline Hyclate 20mg Tab 20 mg PO BID 07/22/22 07/22/22 Ergocalciferol (Vitamin D2) 1,250 mcg PO WE 07/22/22 07/22/22 [Drisdol (50,000 Iu)] glipiZIDE [Glucotrol] 10 mg PO DAILY 07/22/22 07/22/22 Previous Rx's Medication Instructions Recorded Pantoprazole [Protonix] 40 mg PO DAILY #15 tab 07/22/22 Azithromycin [Zithromax] 500 mg PO DAILY #4 tab 04/07/24 Allergies Allergy/AdvReac Type Severity Reaction Status Date / Time No Known Allergies Allergy Verified 05/21/24 00:50 Review of Systems ROS Statement: Those systems with pertinent positive or pertinent negative responses have been documented in the HPI. ROS Other: All systems not noted in ROS Statement are negative. Past Medical History Past Medical History: Diabetes Mellitus, GERD/Reflux, Seizure Disorder Additional Past Medical History / Comment(s): IBS - no dairy. last seizure over 1 year ago. RECENT BLEEDING FROM RECTUM. LITHOTRIPSY History of Any Multi-Drug Resistant Organisms: None Reported Past Surgical History: No Surgical Hx Reported Additional Past Surgical History / Comment(s): CYSTOSCOPY WITH LITHOTRIPSY Past Anesthesia/Blood Transfusion Reactions: No Reported Reaction Past Psychological History: No Psychological Hx Reported Smoking Status: Never smoker Past Alcohol Use History: Occasional Past Drug Use History: None Reported - Past Family History Mother Family Medical History: No Reported History General Exam Limitations: no limitations General appearance: alert, in no apparent distress Head exam: Present: atraumatic, normocephalic, normal inspection Eye exam: Present: normal appearance, EOMI Neck exam: Present: normal inspection. Absent: meningismus Respiratory exam: Absent: respiratory distress Cardiovascular Exam: Present: regular rate Neurological exam: Present: alert, oriented X3 Expanded Eye Response: (4) open spontaneously Motor Response: (6) obeys commands Verbal Response: (5) oriented Emily Total: 15 Psychiatric exam: Present: normal affect, normal mood Skin exam: Present: warm, dry, normal color Course Vital Signs 05/21/24 00:33 Temperature 97.8 F Pulse Rate 82 Respiratory 18 Rate Blood Pressure 130/93 O2 Sat by Pulse 95 Oximetry Medical Decision Making - Medical Decision Making Was pt. sent in by a medical professional or institution (TE Monahan, CAGE SUPERVISOR, urgent care, hospital, or [facility]...) When possible be specific @ -No Did you speak to anyone other than the patient for history (EMS, parent, family, police, friend...)? What history was obtained from this source @ -No Did you review nursing and triage notes (agree or disagree)? Why? @ -I reviewed and agree with nursing and triage notes Were old charts reviewed (outside hosp., previous admission, EMS record, old EKG, old radiological studies, urgent care reports/EKG's, [facility] records)? Report findings @ -No old charts were reviewed Differential Diagnosis (chest pain, altered mental status, abdominal pain women, abdominal pain men, vaginal bleeding, weakness, fever, dyspnea, syncope, headache, dizziness, GI bleed, back pain, seizure, CVA, palpatations, mental health, musculoskeletal)? @ -MDM Differential Headache: Migraine, tension, cluster, carbon monoxide, central venous thrombosis, pension karma temporal arteritis, acute closure glaucoma, intercranial hemorrhage, mastoiditis, sinusitis, head injury this is not meant to be an all-inclusive list. EKG interpreted by me (3pts min.). @ -As above X-rays interpreted by me (1pt min.). @ -None done CT interpreted by me (1pt min.). @ -None done U/S interpreted by me (1pt. min.). @ -None done What testing was considered but not performed or refused? (CT, X-rays, U/S, labs)? Why? @ -None What meds were considered but not given or refused? Why? @ -None Did you discuss the management of the patient with other professionals (professionals i.e. , PA, CAGE SUPERVISOR, lab, RT, psych nurse, social service manager, soft metals hand engraver, teacher, court security officer, renal case manager)? Give summary @ -No Was smoking cessation discussed for >3mins.? @ -No Was critical care preformed (if so, how long)? @ -No Were there social determinants of health that impacted care today? How? (Homelessness, low income, unemployed, alcoholism, drug addiction, transportation, low edu. Level, literacy, decrease access to med. care, fdc, rehab)? @ -No Was there de-escalation of care discussed even if they declined (Discuss DNR or withdrawal of care, Hospice)? DNR status @ -No What co-morbidities impacted this encounter? (DM, HTN, Smoking, COPD, CAD, Cancer, CVA, ARF, Chemo, Hep., AIDS, mental health diagnosis, sleep apnea, morbid obesity)? @ -None Was patient admitted / discharged? Hospital course, mention meds given and route, prescriptions, significant lab abnormalities, going to OR and other pertinent info. @ -44-year-old male presenting with concerns for his blood sugar. His blood sugar was 99 at home when he was concerned that this was a low value for him. He was having a headache earlier but is not having any headache at this time. He has no complaints at this time. His current blood sugar is 109. Patient will monitor his sugars closely and take his medications as prescribed. Follow- up with PCP. Report back to ER with any new or worsening symptoms. Discussed return parameters and answered all questions. Patient conveyed verbal understanding and agreed to the plan. I discussed this case in detail with my attending Dr. Aguilar Undiagnosed new problem with uncertain prognosis? @ -No Drug Therapy requiring intensive monitoring for toxicity (Heparin, Nitro, Insulin, Cardizem)? @ -No Were any procedures done? @ -No Diagnosis/symptom? @ -Glucose check Acute, or Chronic, or Acute on Chronic? @ -Acute Uncomplicated (without systemic symptoms) or Complicated (systemic symptoms)? @ -Uncomplicated Side effects of treatment? @ -No Exacerbation, Progression, or Severe Exacerbation? @ -No Poses a threat to life or bodily function? How? (Chest pain, [place], [place], pneumonia, PE, COPD, DKA, ARF, appy, cholecystitis, CVA, Diverticulitis, Homicidal, Suicidal, threat to staff... and all critical care pts) @ -No - Lab Data Lab Results 05/21/24 Range/Units 00:36 POC Glucose (mg/dL) 109 (70-110) mg/dL POC Glu Injection Molding Engineer ID Jeancarlos Cheung Disposition Clinical Impression: Normal blood glucose level Disposition: HOME SELF-CARE Condition: Good Additional Instructions: Follow-up with PCP. Report back to ER with any new or worsening symptoms. Is patient prescribed a controlled substance at d/c from ED?: No Referrals: Asmita Martinez DO [Primary Care Provider] - 1-2 days Time of Disposition: 01:01
== END 2024-05-21 01:06 | disposition home or self-care (01) ==
LOC: EC 00:30
DX: R73.09 Other abnormal glucose (principal)
CPT/HCPCS: 36415; 99284

== ENCOUNTER 2024-06-09 01:19 | Emergency (ER) | payer MEDICARE, OTHER ==
[2024-06-09 01:30] VITALS: TEMP 98.7
[2024-06-09 01:31] LABS: Glucose,Whole Blood 181 mg/dL (70-110)
[2024-06-09] MEDS: BENZONATATE 100 MG CAP PO STA (02:26)
[2024-06-09] MEDS: SODIUM CHLORIDE 0.9% 1,000 ML IV ONE (02:27)
[2024-06-09 02:30] LABS: Basophils % (A) 0 %; Eosinophils # (A) 0.1 k/uL (0-0.7); Eosinophils % (A) 2 %; HCT 45.9 % (39.0-53.0); HGB 15.2 gm/dL (13.0-17.5); Lymphocytes # (A) 1.5 k/uL (1.0-4.8); Lymphocytes % (A) 25 %; MCH 28.9 pg (25.0-35.0); MCHC 33.2 g/dL (31.0-37.0); Mean Platelet Volume 8.1; Monocytes # (A) 0.3 k/uL (0-1.0); Monocytes % (A) 5 %; Neutrophils # (A) 4.1 k/uL (1.3-7.7); Neutrophils % (A) 68 %; Platelet Count 195 k/uL (150-450); RBC 5.28 m/uL (4.30-5.90); RDW 13.3 % (11.5-15.5); WBC 6.1 k/uL (3.8-10.6)
--- NOTE | 2024-06-09 02:40 | ED ---
General Adult HPI - General Chief complaint: Recheck/Abnormal Lab/Rx Stated complaint: cough Time Seen by Provider: 06/09/24 01:27 Source: patient, EMS Mode of arrival: EMS Limitations: no limitations - History of Present Illness Initial comments: This is a pleasant 44-year-old gentleman with a history of diabetes and seizure disorder presenting today for cough. Patient's began having a cough productive of clear sputum yesterday. Woke up this morning with frequent coughing and presents to the ER this morning predominantly for help with controlling his cough. He endorses associated chest tightness but denies any chest pain or difficulty in breathing. Denies congestion or sore throat. Denies lower extremity swelling. Denies fevers or chills. States he did check his blood sugar as well as morning and it was approximately 400. On EMS arrival it decreased into the 200s on arrival to the ER decreased to 181 without intervention. Patient does not take insulin. He does state he has been eating more carbohydrates than normal. Does endorse urinary frequency but denies changes in vision. - Related Data Home Medications Medication Instructions Recorded Confirmed Dicyclomine [Bentyl] 20 mg PO TID 04/15/20 07/22/22 Divalproex ER [Depakote ER] 250 mg PO BID 04/15/20 07/22/22 Divalproex ER [Depakote ER] 500 mg PO BID 04/15/20 07/22/22 Topiramate [Trokendi Xr] 50 mg PO HS 04/15/20 07/22/22 Topiramate [Trokendi Xr] 200 mg PO HS 04/15/20 07/22/22 metFORMIN HCL [Glucophage] 1,000 mg PO BID 04/15/20 07/22/22 sitaGLIPtin [Januvia] 100 mg PO DAILY 04/15/20 07/22/22 Albuterol Inhaler [Ventolin Hfa 2 puff INHALATION RT-Q6H PRN 07/22/22 07/22/22 Inhaler] Doxycycline Hyclate 20mg Tab 20 mg PO BID 07/22/22 07/22/22 Ergocalciferol (Vitamin D2) 1,250 mcg PO WE 07/22/22 07/22/22 [Drisdol (50,000 Iu)] glipiZIDE [Glucotrol] 10 mg PO DAILY 07/22/22 07/22/22 Previous Rx's Medication Instructions Recorded Pantoprazole [Protonix] 40 mg PO DAILY #15 tab 07/22/22 Azithromycin [Zithromax] 500 mg PO DAILY #4 tab 04/07/24 Benzonatate [Tessalon Perles] 100 mg PO TID PRN 7 Days #21 06/09/24 capsule Allergies Allergy/AdvReac Type Severity Reaction Status Date / Time No Known Allergies Allergy Verified 06/09/24 01:30 Review of Systems ROS Statement: Those systems with pertinent positive or pertinent negative responses have been documented in the HPI. ROS Other: All systems not noted in ROS Statement are negative. Past Medical History Past Medical History: Diabetes Mellitus, GERD/Reflux, Seizure Disorder Additional Past Medical History / Comment(s): IBS - no dairy. last seizure over 1 year ago. RECENT BLEEDING FROM RECTUM. LITHOTRIPSY History of Any Multi-Drug Resistant Organisms: None Reported Past Surgical History: No Surgical Hx Reported Additional Past Surgical History / Comment(s): CYSTOSCOPY WITH LITHOTRIPSY Past Anesthesia/Blood Transfusion Reactions: No Reported Reaction Past Psychological History: No Psychological Hx Reported Smoking Status: Former smoker Past Alcohol Use History: Occasional Past Drug Use History: None Reported - Past Family History Mother Family Medical History: No Reported History General Exam - General Exam Comments Initial Comments: PE: CONSTITUTIONAL: No apparent distress, well appearing SKIN: Warm, dry, no jaundice, hives or petechiae EYES: Pupils are equally round, extraocular movements intact without nystagmus, clear conjunctiva, non-icteric sclera HENT: Normocephalic, atraumatic, moist mucus membranes, oropharynx clear without exudates NECK: , Full range of motion, normal appearance PULMONARY: Questionable scant coarse breath sounds in the peripheral lung cohn, no wheezing rales or stridor, normal excursion no accessory muscle use CARDIOVASCULAR: Regular rate, rhythm, normal S1 and S2. No appreciated murmurs, rubs or gallops. Strong radial pulses with intact distal perfusion. No lower extremity edema GASTROINTESTINAL: Soft, active bowel sounds throughout, non-tender, non-diste nded, no palpable masses, no rebound or guarding. No hepatosplenomegaly MUSCULOSKELETAL: Extremities have no gross deformity, no edema, redness, or swelling. No calf swelling NEUROLOGIC:_a/o x 3, GCS 15, normal mentation and speech. Moves all extremities x 4 without motor or sensory deficit PSYCHIATRIC:_normal mood and affect, thought process is clear and linear Limitations: no limitations Course Vital Signs 06/09/24 06/09/24 06/09/24 01:25 03:07 03:16 Temperature 98.7 F Pulse Rate 100 95 97 Respiratory 16 18 18 Rate Blood Pressure 140/78 O2 Sat by Pulse 100 Oximetry 06/09/24 06/09/24 06:23 07:41 Temperature Pulse Rate 77 81 Respiratory 18 16 Rate Blood Pressure 97/59 103/78 O2 Sat by Pulse 96 97 Oximetry EKG Findings - EKG Comments: EKG Findings:: Sinus tachycardia, rate 104 bpm NE interval 145 ms, QT/QTc 342/4 3 ms, normal axis, no ST elevations or depressions, no hyperacute T waves/peaked T waves, no STEMICompared to EKG performed on 04/07/2024, right bundle branch block was present on prior as well, no significant changes from prior EKG Medical Decision Making - Medical Decision Making Was pt. sent in by a medical professional or institution (, PA, FINANCIAL SERVICE REP, urgent care, hospital, or correction...) When possible be specific @ -No Did you speak to anyone other than the patient for history (EMS, parent, family, police, friend...)? What history was obtained from this source @ -No Did you review nursing and triage notes (agree or disagree)? Why? @ -I reviewed nursing and triage notes Were old charts reviewed (outside hosp., previous admission, EMS record, old EKG, old radiological studies, urgent care reports/EKG's, correction records)? Report findings @ -Medical records reviewed-patient here for hyperglycemia cough, blood glucose on arrival 181 Differential Diagnosis (chest pain, altered mental status, abdominal pain women, abdominal pain men, vaginal bleeding, weakness, fever, dyspnea, syncope, headache, dizziness, GI bleed, back pain, seizure, CVA, palpatations, mental health, musculoskeletal)? @ Differential diagnoses top considerations include viral URI, pneumonia, asthma exacerbation, acute bronchitis, allergic rhinitis, uncontrolled hyperglycemia, DKA, HHS this is not an inclusive list EKG interpreted by me (3pts min.). @ -As above X-rays interpreted by me (1pt min.). @ -Personally reviewed patient's chest x-ray, no cardiomegaly, no pleural effusions, no gross consolidations, read by radiologist as lower opacities likely atelectasis, I agree with radiologist interpretation CT interpreted by me (1pt min.). @ -None done U/S interpreted by me (1pt. min.). @ -None done What testing was considered but not performed or refused? (CT, X-rays, U/S, labs)? Why? @ -None What meds were considered but not given or refused? Why? @Considered adminisitration of insulin however pt's glucose spontaneously decreased to 129 and repeat K wnl. Did you discuss the management of the patient with other professionals (professionals i.e. , PA, FINANCIAL SERVICE REP, lab, RT, psych nurse, social research assistant, hammer fitter, teacher, fiscal officer, case hardener)? Give summary @ -No Was smoking cessation discussed for >3mins.? @ -No Was critical care preformed (if so, how long)? @ -No Were there social determinants of health that impacted care today? How? (Homelessness, low income, unemployed, alcoholism, drug addiction, transportati on, low edu. Level, literacy, decrease access to med. care, longterm, rehab)? @ -No Was there de-escalation of care discussed even if they declined (Discuss DNR or withdrawal of care, Hospice)? @ -No What co-morbidities impacted this encounter? (DM, HTN, Smoking, COPD, CAD, Cancer, CVA, ARF, Chemo, Hep., AIDS, mental health diagnosis, sleep apnea, morbid obesity)? Diabetes, seizure disorder Was patient admitted / discharged? Hospital course, mention meds given and route, prescriptions, significant lab abnormalities, going to OR and other pertinent info. @Discharge- This is a pleasant 44-year-old gentleman presenting today for 1 day of cough. On my assessment, no active coughing, well-appearing in no acute distress. Pulse ox within acceptable limits, slightly tachycardic heart rate 105 on my assessment. Exam reveals scant coarse breath sounds vs transmitted upper airway sounds, in the bilateral lower lung cohn without wheezing, rales or stridor. Exam otherwise benign. I discussed with the patient obtaining chest x-ray, giving breathing treatment as he does typically use an albuterol inhaler at home. Given hyperglycemia we will check basic labs and give IV fluids as well. Patient agreeable plan of care. Patient RSV positive. Labs reviewed and show no leukocytosis, mild hyperkalemia, k 5.6, with slight hemolysis. Patient is no EKG changes reflective of hyperkalemia units IV insulin given blood sugar 186 and recheck potassium. I anticipate discharge. Discussed with patient plan for discharge after repeat potassium and urinalysis results, updated him to findings of positive RSV swab. We discussed symptomatic care for his cough and plan for discharge home if repeat potassium within normal limits. Patient verbalized understanding is agreeable plan of care. Repeat K 3.9. UA w/o signs of infection. Consider administration of steroids however patient has no wheezing on exam cough is productive only of clear sputum, and at this time I feel symptoms are more consistent with viral URI secondary to RSV as opposed to acute bronchitis, additionally with patient's hyperglycemia I feel the risk of worsening hyperglycemia with steroids outweighs potential benefit at this point. In my medical judgment there is currently no evidence of an immediate life-threatening or surgical condition. Discharge is therefore indicated at this time. Discharge treatment instructions, follow up instructions, and appropriate emergency department return precautions were discussed with the patient and/or medical decision maker. Patient and/or medical decision maker expressed understanding of and agreed with the treatment plan, follow up instructions, and emergency department return precaution. All patient's and/or medical decision maker's questions were answered. Undiagnosed new problem with uncertain prognosis? @ -No Drug Therapy requiring intensive monitoring for toxicity (Heparin, Nitro, Insulin, Cardizem)? @ -No Were any procedures done? @ -No Diagnosis/symptom? @RSV hyperglycemia Acute, or Chronic, or Acute on Chronic? @Acute Uncomplicated (without systemic symptoms) or Complicated (systemic symptoms)? @Uncomplicated Side effects of treatment? @ -No Exacerbation, Progression, or Severe Exacerbation? @ -No Poses a threat to life or bodily function? How? (Chest pain, USA, VT, pneumonia, PE, COPD, DKA, ARF, appy, cholecystitis, CVA, Diverticulitis, Homicidal, Suicidal, threat to staff... and all critical care pts) @ -No - Lab Data Result diagrams: 06/09/24 01:40 06/09/24 04:26 Lab Results 02/22/25 02/22/25 02/22/25 Range/Units 01:29 01:40 01:40 WBC 6.1 (3.8-10.6) k/uL RBC 5.28 (4.30-5.90) m/uL Hgb 15.2 (13.0-17.5) gm/dL Hct 45.9 (39.0-53.0) % MCV 87.0 (80.0-100.0) fL MCH 28.9 (25.0-35.0) pg MCHC 33.2 (31.0-37.0) g/dL RDW 13.3 (11.5-15.5) % Plt Count 195 (150-450) k/uL MPV 8.1 Neutrophils % 68 % Lymphocytes % 25 % Monocytes % 5 % Eosinophils % 2 % Basophils % 0 % Neutrophils # 4.1 (1.3-7.7) k/uL Lymphocytes # 1.5 (1.0-4.8) k/uL Monocytes # 0.3 (0-1.0) k/uL Eosinophils # 0.1 (0-0.7) k/uL Basophils # 0.0 (0-0.2) k/uL VBG pH (7.31-7.41) VBG pCO2 (37-51) mmHg VBG HCO3 (24-28) mmol/L Sodium (137-145) mmol/L Potassium (3.5-5.1) mmol/L Chloride (98-107) mmol/L Carbon Dioxide (22-30) mmol/L Anion Gap mmol/L BUN (9-20) mg/dL Creatinine (0.66-1.25) mg/dL Est GFR (CKD-EPI)AfAm (>60 ml/min/1.73 sqM) Est GFR (CKD-EPI)NonAf (>60 ml/min/1.73 sqM) Glucose (74-99) mg/dL POC Glucose (mg/dL) 181 H (70-110) mg/dL POC Glu Balancing Machine Set Up Worker JOSE Davon Thompson Calcium (8.4-10.2) mg/dL Total Bilirubin (0.2-1.3) mg/dL AST (17-59) U/L ALT (4-49) U/L Alkaline Phosphatase (38-126) U/L Total Protein (6.3-8.2) g/dL Albumin (3.5-5.0) g/dL Urine Color Urine Appearance (Clear) Urine pH (5.0-8.0) Ur Specific [place] (1.001-1.035) Urine Protein (Negative) Urine Glucose (UA) (Negative) Urine Ketones (Negative) Urine Blood (Negative) Urine Nitrite (Negative) Urine Bilirubin (Negative) Urine Urobilinogen (<2.0) mg/dL Ur Leukocyte Esterase (Negative) Acetone, Qual (Negative) Influenza Type A (PCR) Not Detected (Not Detectd) Influenza Type B (PCR) Not Detected (Not Detectd) RSV (PCR) Detected A (Not Detectd) SARS-CoV-2 (PCR) Not Detected (Not Detectd) 06/09/24 06/09/24 06/09/24 Range/Units 01:40 02:15 04:19 WBC (3.8-10.6) k/uL RBC (4.30-5.90) m/uL Hgb (13.0-17.5) gm/dL Hct (39.0-53.0) % MCV (80.0-100.0) fL MCH (25.0-35.0) pg MCHC (31.0-37.0) g/dL RDW (11.5-15.5) % Plt Count (150-450) k/uL MPV Neutrophils % % Lymphocytes % % Monocytes % % Eosinophils % % Basophils % % Neutrophils # (1.3-7.7) k/uL Lymphocytes # (1.0-4.8) k/uL Monocytes # (0-1.0) k/uL Eosinophils # (0-0.7) k/uL Basophils # (0-0.2) k/uL VBG pH 7.35 (7.31-7.41) VBG pCO2 39 (37-51) mmHg VBG HCO3 22 L (24-28) mmol/L Sodium 138 (137-145) mmol/L Potassium 5.6 H (3.5-5.1) mmol/L Chloride 105 (98-107) mmol/L Carbon Dioxide 20 L (22-30) mmol/L Anion Gap 13 mmol/L BUN 16 (9-20) mg/dL Creatinine 1.09 (0.66-1.25) mg/dL Est GFR (CKD-EPI)AfAm >90 (>60 ml/min/1.73 sqM) Est GFR (CKD-EPI)NonAf 83 (>60 ml/min/1.73 sqM) Glucose 186 H (74-99) mg/dL POC Glucose (mg/dL) 129 H (70-110) mg/dL POC Glu Balancing Machine Set Up Worker JOSE Thompson Calcium 9.4 (8.4-10.2) mg/dL Total Bilirubin 1.1 (0.2-1.3) mg/dL AST 32 (17-59) U/L ALT 18 (4-49) U/L Alkaline Phosphatase 49 (38-126) U/L Total Protein 7.4 (6.3-8.2) g/dL Albumin 4.6 (3.5-5.0) g/dL Urine Color Urine Appearance (Clear) Urine pH (5.0-8.0) Ur Specific [place] (1.001-1.035) Urine Protein (Negative) Urine Glucose (UA) (Negative) Urine Ketones (Negative) Urine Blood (Negative) Urine Nitrite (Negative) Urine Bilirubin (Negative) Urine Urobilinogen (<2.0) mg/dL Ur Leukocyte Esterase (Negative) Acetone, Qual Negative (Negative) Influenza Type A (PCR) (Not Detectd) Influenza Type B (PCR) (Not Detectd) RSV (PCR) (Not Detectd) SARS-CoV-2 (PCR) (Not Detectd) 06/09/24 06/09/24 Range/Units 04:26 06:59 WBC (3.8-10.6) k/uL RBC (4.30-5.90) m/uL Hgb (13.0-17.5) gm/dL Hct (39.0-53.0) % MCV (80.0-100.0) fL MCH (25.0-35.0) pg MCHC (31.0-37.0) g/dL RDW (11.5-15.5) % Plt Count (150-450) k/uL MPV Neutrophils % % Lymphocytes % % Monocytes % % Eosinophils % % Basophils % % Neutrophils # (1.3-7.7) k/uL Lymphocytes # (1.0-4.8) k/uL Monocytes # (0-1.0) k/uL Eosinophils # (0-0.7) k/uL Basophils # (0-0.2) k/uL VBG pH (7.31-7.41) VBG pCO2 (37-51) mmHg VBG HCO3 (24-28) mmol/L Sodium (137-145) mmol/L Potassium 3.9 (3.5-5.1) mmol/L Chloride (98-107) mmol/L Carbon Dioxide (22-30) mmol/L Anion Gap mmol/L BUN (9-20) mg/dL Creatinine (0.66-1.25) mg/dL Est GFR (CKD-EPI)AfAm (>60 ml/min/1.73 sqM) Est GFR (CKD-EPI)NonAf (>60 ml/min/1.73 sqM) Glucose (74-99) mg/dL POC Glucose (mg/dL) (70-110) mg/dL POC Glu Balancing Machine Set Up Worker ID Calcium (8.4-10.2) mg/dL Total Bilirubin (0.2-1.3) mg/dL AST (17-59) U/L ALT (4-49) U/L Alkaline Phosphatase (38-126) U/L Total Protein (6.3-8.2) g/dL Albumin (3.5-5.0) g/dL Urine Color Light Yellow Urine Appearance Clear (Clear) Urine pH 6.5 (5.0-8.0) Ur Specific [place] 1.037 H (1.001-1.035) Urine Protein Negative (Negative) Urine Glucose (UA) 4+ H (Negative) Urine Ketones 1+ H (Negative) Urine Blood Negative (Negative) Urine Nitrite Negative (Negative) Urine Bilirubin Negative (Negative) Urine Urobilinogen <2.0 (<2.0) mg/dL Ur Leukocyte Esterase Negative (Negative) Acetone, Qual (Negative) Influenza Type A (PCR) (Not Detectd) Influenza Type B (PCR) (Not Detectd) RSV (PCR) (Not Detectd) SARS-CoV-2 (PCR) (Not Detectd) Disposition Clinical Impression: RSV infection, Hyperglycemia Disposition: HOME SELF-CARE Condition: Stable Instructions (If sedation given, give patient instructions): Respiratory Syncytial Virus (ED) Additional Instructions: Every disease is a spectrum and a small chance still exists that a serious condition could develop, for this reason, please monitor yourself closely for new, changing or worsening symptoms, symptoms that do not improve in 72 hours, coughing up thick sputum or blood, chest pain or difficulty in breathing, fever, inability to tolerate/keep down fluids or your medications, inability to follow up with outpatient providers as instructed and should you experience these symptoms or should you have any further concerns for your wellbeing please return to the ED or call 911 immediately. PLEASE call your primary care physician as soon as possible to arrange / discuss plan for followup appointment. Appointment in the next 1-3 days is strongly encouraged if possible. PLEASE let us know here before you leave if there is anything further we can do to be of any assistance. Take care and feel Better! Prescriptions: Benzonatate [Tessalon Perles] 100 mg PO TID PRN 7 Days #21 capsule PRN Reason: Cough Is patient prescribed a controlled substance at d/c from ED?: No Referrals: Asmita Martinez DO [Primary Care Provider] - 1-2 days
[2024-06-09 03:06] LABS: Influenza A Not Detected (Not Detectd); Influenza B Not Detected (Not Detectd); RSV Detected (Not Detectd)
[2024-06-09] MEDS: IPRATROPIUM-ALBUTEROL 3 ML NEB INHALATION STA (03:07)
[2024-06-09 03:11] LABS: VBG PH 7.35 (7.31-7.41)
--- NOTE | 2024-06-09 03:20 | XR ---
EXAM: XR Chest, 2 Views CLINICAL HISTORY: ITS.REASON XR Reason: Difficulty breathing TECHNIQUE: Frontal and lateral views of the chest. COMPARISON: Chest radiograph on 04/07/2024 FINDINGS: Hardware: None. Lungs/pleura: Mild lower lung opacities bilaterally. No pleural effusion or pneumothorax. Heart/mediastinum: Normal. No cardiomegaly. Soft tissues: Unremarkable. Bones: No acute fracture. Upper abdomen: Normal. IMPRESSION: Mild lower lung opacities bilaterally probably represent atelectasis.
[2024-06-09 03:47] LABS: ALT 18 U/L (4-49); African American GFR (CKD) >90 (>60 ml/min/1.73 sqM); Anion Gap 13 mmol/L; Blood Urea Nitrogen 16 mg/dL (9-20); Calcium 9.4 mg/dL (8.4-10.2); Carbon Dioxide 20 mmol/L (22-30); Chloride 105 mmol/L (98-107); Glucose 186 mg/dL (74-99); Non-African American GFR(CKD) 83 (>60 ml/min/1.73 sqM); Sodium 138 mmol/L (137-145); Total Bilirubin 1.1 mg/dL (0.2-1.3)
[2024-06-09 04:02] LABS: AST 32 U/L (17-59); Albumin 4.6 g/dL (3.5-5.0); Alkaline Phosphatase 49 U/L (38-126); Potassium 5.6 mmol/L (3.5-5.1); Total Protein 7.4 g/dL (6.3-8.2)
[2024-06-09 04:20] LABS: Glucose,Whole Blood 129 mg/dL (70-110)
[2024-06-09] MEDS: INSULIN REGULAR 100 UNIT/ML VIAL (IV) IV ONE (04:26)
[2024-06-09 07:25] LABS: Appearance,Urine Clear (Clear); Bilirubin,Urine Negative (Negative); Blood,Urine Negative (Negative); Color,Urine Light Yellow; Glucose,Urine (UA) 4+ (Negative); Ketones,Urine 1+ (Negative); Leukocyte Esterase,Urine Negative (Negative); Nitrite,Urine Negative (Negative); PH, Urine 6.5 (5.0-8.0); Protein,Urine Negative (Negative); Specific Gravity,Urine 1.037 (1.001-1.035); Urobilinogen,Urine <2.0 mg/dL (<2.0)
[2024-06-09 07:42] VITALS: BP 103/78; PULSE 81; RESP 16
== END 2024-06-09 07:44 | disposition home or self-care (01) ==
LOC: EC 01:19
DX: E11.65 Type 2 diabetes mellitus with hyperglycemia (principal); B97.4 Respiratory syncytial virus as the cause of diseases classified elsewhere; G40.909 Epilepsy, unspecified, not intractable, without status epilepticus; R00.0 Tachycardia, unspecified; I45.10 Unspecified right bundle-branch block; Z87.891 Personal history of nicotine dependence
CPT/HCPCS: 36415; 71046; 80053; 81003; 82009; 82803; 84132; 85025; 87636; 93005; 94640; 96360; 99284